=== PATIENT | female | born 1980 | race Caucasian/White ===

== ENCOUNTER 2016-12-20 20:02 | Emergency (ER) | payer OTHER ==
[~2016-12-20] VITALS: Ht 170.2 cm; Wt 80.1 kg
[2016-12-20 20:21] VITALS: TEMP 37.1; Ht 170.2 cm; Wt 80.1 kg
[2016-12-20] MEDS ORDERED: KETOROLAC TROMETHAMINE 30 MG/ML VIAL IV STA (21:04)
[2016-12-20] MEDS ORDERED: PROCHLORPERAZINE 5 MG/ML 2 ML VIAL IV STA (21:04)
[2016-12-20] MEDS ORDERED: SODIUM CHLORIDE 0.9% 1000ML 1,000 ML IV STA (21:04)
[2016-12-20] MEDS ORDERED: LEVO150T PO (21:09)
[2016-12-20] MEDS ORDERED: SUMA50TA15 PO (21:09)
[2016-12-20 21:49] LABS: BUN/CREATININE RATIO 12.9 (10-20); CREATININE 0.86 mg/dl (0.60-1.20); POTASSIUM 3.9 mmol/L (3.5-5.1)
--- NOTE | 2016-12-20 22:14 | EMERGENCY ROOM VISIT NOTE ---
ED Visit Note First contact with patient: 20:29 CHIEF COMPLAINT: Severe headache today HISTORY OF PRESENT ILLNESS: This patient had gradual onset of a severe generalized headache since 3pm yesterday. Patient states history of migraine headaches, states this feels similar, but she has never had one last this long. She denies any sudden onset or "thunderclap" type headache, denies worst headache of her life. She went to urgent care today, who gave her a new prescription for Imitrex, she has taken this twice today without relief, so she decided to come to the ED. There has been associated photophobia, phonophobia, and nausea, but no vomiting. The patient denies fever or chills today, and there is no weakness or numbness of the extremities. There is no difficulty with speech or vision. No trauma to the head and no neck pain. The pain is severe, constant, and it is slowly increasing in severity. This is not the worst headache of her life and is similar to previous migraines. She reports previous imaging studies of the brain (CT/MRI scans) have been normal. REVIEW OF SYSTEMS: Ears: No pain or change in hearing. Neck: No pain, stiffness, or swelling. Neurological: No changes in mental status, vertigo, focal weakness, numbness. Denies any slurred speech or confusion. Cardiac: No chest pain, diaphoresis, dyspnea on exertion, orthopnea, pedal edema, or palpitations. Respiratory: No cough, change in sputum, wheezes, hemoptysis, shortness of breath, or stridor. Gastrointestinal: No abdominal pain, blood in stools, diarrhea, loss of appetite, nausea, or vomiting. Skin: No rash, new lesions, or masses. General: No fever or chills, fatigue, loss of appetite , or significant recent weight gain or loss. PMH: The patient is healthy; there is no significant medical or surgical history. SOCIAL HISTORY: Patient lives at home. PHYSICAL EXAM: Vital Signs: Reviewed Nurse's notes. MENTAL STATUS: Alert, oriented, and coherent. In great distress from the headache. NECK: Supple, nontender, no lymphadenopathy. HEART: Regular rhythm and normal rate without murmurs, ectopy, gallops, or rubs. SKIN: Normal. NEUROLOGICAL: Pupils are round, equal and react to light. The optic fundi are normal and the discs are flat. EOMs are full and there is no nystagmus. The patient moves all extremities well and the gait is normal. Negative Romberg's test. Normal [id number] test. Each. EMERGENCY DEPARTMENT COURSE: I examined the patient. Her neuro exam is unremarkable and no focal deficits. Her history is consistent with a migraine headache and no red flags. Basic labs assessed, no significant electrolyte abnormalities and normal renal function. The patient was given IV fluid bolus, IV Toradol, IV Compazine cocktail for the headache with significant relief of the pain and patient sleeping on reassessment. Patient was instructed to follow closely with her PCP and to discuss possible referral to a neurologist of her migraines continue to be frequent. She verbalized understanding. Patient was discharged home in stable condition and ambulatory. Patient was discussed with Dr. Santos, who agrees with my assessment and disposition. Current/Historical Medications Scheduled Levothyroxine Sodium (Synthroid), 150 MCG PO DAILY Sumatriptan Succinate (Imitrex), 50 MG PO PRN Allergies Coded Allergies: Aspirin (Verified Allergy, Mild, Hives, 12/20/16) Codeine (Verified Allergy, Mild, Hives, 12/20/16) Vital Signs Date Time Temp Pulse Resp B/P (MAP) Pulse Ox O2 Delivery O2 Flow Rate FiO2 12/20/16 23:13 68 18 111/72 96 Room Air 12/20/16 21:46 74 20 123/79 99 Room Air 12/20/16 20:21 37.1 86 18 125/85 98 Room Air Laboratory Results 12/20/16 21:15 Test 12/20/16 21:15 Anion Gap 6.0 mmol/L (3-11) Est Creatinine Clear Calc Drug Dose 97.6 ml/min Estimated GFR () 100.0 Estimated GFR (Non- 86.3 BUN/Creatinine Ratio 12.9 (10-20) Calcium Level 9.0 mg/dl (8.5-10.1) Chemistry Specimen Hemolysis Medications Administered Medications (Trade) Dose Ordered Sig/Kenneth Route Start Time Stop Time Status Last Admin Dose Admin Prochlorperazine Edisylate (Compazine Inj) 10 mg NOW STAT IV 12/20/16 21:04 12/20/16 21:07 DC 12/20/16 21:42 10 MG Sodium Chloride 1,000 ml @ 999 mls/hr Q1H1M STAT IV 12/20/16 21:04 12/20/16 22:04 DC 12/20/16 21:04 999 MLS/HR Ketorolac Tromethamine (Toradol Inj) 15 mg NOW STAT IV 12/20/16 21:04 12/20/16 21:07 DC 12/20/16 21:41 15 MG Departure Information Impression Primary Impression: Migraine Dispostion Home / Self-Care Condition GOOD Referrals No Doctor, Assigned (PCP) Patient Instructions ED Headache Migraine, My [facility] Additional Instructions Rest today in a quiet, peaceful, dark environment and get a full 8-10 hrs of sleep tonight. Avoid loud noises, smoke/smoking, alcohol, bright lights, stress, or physical exertion today to minimize the chance the headache may return. Ibuprofen(Motrin, Advil) may be used for fever or pain. Use 600mg every 6-8 hours as needed. Take with food. Avoid using more than 2400mg in a 24 hour period. Do not use 2400mg per day for more than three consecutive days without physician direction. Prolonged inappropriate use can lead to stomach upset or ulcers. (AND/OR) Acetaminophen(Tylenol) may be used for fever or pain. Use 1000mg every 8 hours as needed. Avoid using more than 3000mg in a 24 hour period. You may try using the Imitrex at the first sign of a migraine headache to see if this will stop it from worsening. Return to the ER for passing out, worsening headache, vision problems, neck stiffness/pain, fevers, vomiting, worsening of your condition, or for any other concerns. Follow up with your primary physician in 2-3 days for a recheck of your current condition. Discuss referral to see a neurologist regarding her migraine headaches. Problem Qualifiers Primary Impression: Migraine Migraine type: with aura Status migrainosus presence: without status migrainosus Intractability: intractable Qualified Codes: G43.119 - Migraine with aura, intractable, without status migrainosus
[2016-12-20 23:13] VITALS: BP 111/72; PULSE 68; O2SAT 96
== END 2016-12-20 23:16 | disposition home or self-care (01) ==
LOC: C.EDB 20:03 → C.EDA 23:16
DX: G43.119 Migraine with aura, intractable, without status migrainosus (principal)

== ENCOUNTER → 2017-01-25 | Outpatient (CLI) | payer OTHER ==
[~2017-01-25] MED LIST: LEVO150T PO; SUMA50TA15 PO
[2017-01-25 12:48] LABS: BLOOD UREA NITROGEN 11 mg/dl (7-18); BUN/CREATININE RATIO 13.6 (10-20); CARBON DIOXIDE 26 mmol/L (21-32); CHLORIDE 106 mmol/L (98-107); CREATININE 0.81 mg/dl (0.60-1.20); GLUCOSE 89 mg/dl (70-99); POTASSIUM 3.9 mmol/L (3.5-5.1); SODIUM 140 mmol/L (136-145)
[2017-01-25 12:58] LABS: THYROID STIMULATING HORMONE 0.502 uIu/ml (0.300-4.500)
[2017-01-25 13:15] LABS: INSULIN FASTING 7.4 mU/L (3-25)
== END | disposition home or self-care (01) ==
LOC: C.LAB1850 10:39
PROVIDERS: ATTEND Internal Medicine Endocrinology, Diabetes & Metabolism
DX: O24.419 Gestational diabetes mellitus in pregnancy, unspecified control (principal); C73 Malignant neoplasm of thyroid gland; L68.0 Hirsutism; E83.51 Hypocalcemia; O99.280 Endocrine, nutritional and metabolic diseases complicating pregnancy, unspecified trimester; O99.719 Diseases of the skin and subcutaneous tissue complicating pregnancy, unspecified trimester; O9A.119 Malignant neoplasm complicating pregnancy, unspecified trimester

== ENCOUNTER → 2017-02-03 | Outpatient (CLI) | payer OTHER ==
--- NOTE | 2017-02-03 14:32 | DIAGNOSTIC IMAGING REPORT ---
NECK ULTRASOUND CLINICAL HISTORY: Thyroid cancer status post thyroidectomy 2010. COMPARISON STUDY: None at time of interpretation. TECHNIQUE: Sonography of the thyroidectomy bed and neck was performed. FINDINGS: A 6 mm x 2 mm x 2 mm hypoechoic focus within the right thyroidectomy bed is of doubtful significance. No additional abnormalities are identified within the thyroidectomy bed. Note is made of a prominent left level 2 cervical lymph node that measures 2.3 x 0.8 cm. No pathologically enlarged cervical lymph nodes are identified. IMPRESSION: 1. Prominent but nonenlarged left level 2 cervical lymph node, measuring 2.3 x 0.8 cm. This lymph node is likely benign however ultrasound-guided fine needle aspiration could be performed if clinically indicated. 2. 6 mm hypoechoic focus within the right thyroidectomy head which is of doubtful significance. Electronically signed by: Alex Méndez M.D. 02/03/2017 2:31 PM Dictated Date/Time: 02/03/2017 12:15 PM
== END | disposition home or self-care (01) ==
LOC: C.ULTR 10:16
PROVIDERS: ATTEND Internal Medicine Endocrinology, Diabetes & Metabolism
DX: C73 Malignant neoplasm of thyroid gland (principal); E89.0 Postprocedural hypothyroidism

== ENCOUNTER → 2017-02-20 | Outpatient (CLI) | payer OTHER ==
[2017-02-21 14:13] LABS: THYROGLOBULIN <0.1 NG/ML (2.8-40.9)
== END | disposition home or self-care (01) ==
LOC: C.LAB 10:00
PROVIDERS: ATTEND Internal Medicine Endocrinology, Diabetes & Metabolism
DX: C73 Malignant neoplasm of thyroid gland (principal)

== ENCOUNTER → 2017-02-24 | Outpatient (CLI) | payer OTHER ==
[2017-02-25 11:34] LABS: THYROGLOBULIN <0.1 NG/ML (2.8-40.9)
== END | disposition home or self-care (01) ==
LOC: C.LAB1850 10:14
PROVIDERS: ATTEND Internal Medicine Endocrinology, Diabetes & Metabolism
DX: C73 Malignant neoplasm of thyroid gland (principal)

== ENCOUNTER 2019-04-01 19:54 | Inpatient (IN) ==
[2019-04-01] MEDS ORDERED: ONDANSETRON INJ 2 MG/ML 2 ML VIAL IV STA (20:21)
[2019-04-01] MEDS ORDERED: fentaNYL citrate 100 MCG/2 ML VIAL IV STA (20:21)
[2019-04-01] MEDS ORDERED: KETOROLAC TROMETHAMINE 15 MG/ML VIAL IV STA (20:21)
[2019-04-01] MEDS ORDERED: SODIUM CHLORIDE 0.9% 1000ML 1,000 ML IV ONE (20:22)
[2019-04-01] MEDS ORDERED: SODIUM CHLORIDE 0.9% 1000ML 1,000 ML IV SCH (20:30)
[2019-04-01 20:42] LABS: Appearance Urine Clear (Clear); Bacteria Urine Automated Negative (Negative); Bilirubin Urine Negative (Negative); Blood Urine 1+ (Negative); Cast Urine Automated 0 /lpf (0-5); Color Urine Yellow; Glucose Urine UA Negative (Negative); Ketones Urine 1+ (Negative); Leukocyte Esterase Urine Negative (Negative); Nitrite Urine Negative (Negative); Protein Urine Negative (Negative); RBC Urine Automated 0-4 /hpf (0-4); Specific Gravity Urine 1.015 (1.000-1.030); Urobilinogen Urine Negative (Negative)
[2019-04-01 20:52] LABS: Basophils # (auto) 0.03 K/uL (0-0.2); Basophils % (auto) 0.2 %; Eosinophils # (auto) 0.11 K/uL (0-0.5); Eosinophils % (auto) 0.6 %; Hematocrit (blood only) 37.8 % (37-47); Immature Granulocytes # (auto) 0.05 K/uL (0.00-0.02); Immature Granulocytes % (auto) 0.3 %; Lymphocytes # (auto) 2.11 K/uL (1.2-3.4); Lymphocytes % (auto) 11.2 %; Mean Corpuscular Hemoglobin 30.7 pg (25-34); Mean Corpuscular Hgb Conc 34.4 g/dL (32-36); Mean Corpuscular Volume 89.2 fL (80-100); Mean Platelet Volume 10.2 fL (7.4-10.4); Monocytes # (auto) 1.23 K/uL (0.11-0.59); Monocytes % (auto) 6.5 %; Neutrophils # (auto) 15.31 K/uL (1.4-6.5); Neutrophils % (auto) 81.2 %; Platelet Count 264 K/uL (130-400); RDW Coefficient of Variation 12.8 % (11.5-14.5); RDW Standard Deviation 41.7 fL (36.4-46.3); Red Blood Count 4.24 M/uL (4.2-5.4); White Blood Count 18.84 K/uL (4.8-10.8)
[2019-04-01 21:01] LABS: iSTAT Creatinine 0.8 mg/dl (0.6-1.3); iSTAT Hemoglobin 13.3 g/dl (12.0-16.0); iSTAT Ionized Calcium 1.13 mmol/l (1.12-1.32); iSTAT Potassium 3.7 mEq/L (3.3-5.0)
[2019-04-01] MEDS ORDERED: IOVERSOL 100ml IV PRN (21:01)
[2019-04-01 21:08] LABS: Albumin Level 3.9 gm/dl (3.4-5.0); BUN Creatinine Ratio 13.1 (10-20); Calcium 9.1 mg/dl (8.5-10.1); Creatinine Clr Calc Pharmacy 91.1 ml/min; Est GFR (African American) 98.6; Est GFR (Non-African American) 85.1; Potassium 3.7 mmol/L (3.5-5.1)
[2019-04-01 21:11] LABS: Bilirubin,Total 1.1 mg/dl (0.2-1); Globulin 4.1 gm/dl (2.5-4.0)
--- NOTE | 2019-04-01 21:20 | CT Scan Report ---
CT abd pelvis IV con only CT DOSE: 362.90 mGy.cm HISTORY: Pain. Nausea. RLQ pain, nausea TECHNIQUE: Multiaxial CT images of the abdomen and pelvis were performed following the use of intrave nous contrast. A dose lowering technique was utilized adhering to the principles of ALARA. COMPARISON STUDY: None. FINDINGS: The lung bases are clear. The liver, spleen, gallbladder, pancreas, kidneys, and adrenal gl ands are within normal limits. There are findings of a diffuse inflammatory process within the right mid to lower paracolic gutter. This encompasses components of what appear to be a distended appendix at 12 mm, as well as several di verticuli adjacent to the superior aspect of the cecum and/or mid ascending colon. Diagnostic considerations primarily include cecal diverticulitis with secondary appendicitis. Overall dimensions of the inflammatory and/or developing phlegmon is process is 6 x 5 x 7 cm. A well-defined drainable component is not identified. A microabscess measuring no more than 1.5 cm potentially rela benny to at least one diverticulum of the mid ascending colon image 231. Bowel pattern is otherwise unremarkable. The bladder is midline. There is a trace amount of free flui d in the pelvic cul-de-sac. IMPRESSION::: 1. Rather significant inflammatory process involving the right mid to lower paracolic gutter 2. This encompasses a distended appendix at 12 mm, as well as contain several diverticuli. 3. No evidence for a drainable abscess or collection currently, although an early phlegmon must be co nsidered. 4. Diagnostic considerations must include cecal and/or ascending colonic diverticulitis, with seconda ry inflammatory change of the appendix. 5. An additional diagnostic considerations must include acute appendicitis with secondary ascending c olitis. 6. Overall dimension of the regional inflammatory process is 6 x 5 x 7 cm. The above report was generated using voice recognition software. It may contain grammatical, syntax or spelling errors. Electronically signed by: Grady Yanez M.D. 04/01/2019 9:18 PM
[2019-04-01] MEDS ORDERED: PIPERACILLIN/TAZOBACTAM 4.5 GM/120 ML BAG IV ONE (21:33)
[2019-04-01] MEDS ORDERED: PIPERACILL/TAZOBAC CONSULT ACTIVE PRN (21:33)
--- NOTE | 2019-04-01 22:47 | Emergency Department Note ---
Entered by Maya Murillo acting as a scribe for Rory Roldan M.D. History of Present Illness General Chief complaint: Flank Pain Stated complaint: SHARP RIGHT PAIN Time Seen by Provider: 04/01/19 20:11 Source: patient History of Present Illness Onset (ago): day(s) (yesterday) Location: right (flak) Radiation: non-radiation Maximum Pain Intensity: 6 Quality: + other (right flank pain) Exacerbated By: + other (walking) Associated symptoms: + loss of appetite and + other (Positive nausea, palpitations, family hx of gall bladder disease (her mother had a cholecystectomy), chance of . Negative upper abdominal pain, radiation of pain to her back, recent falls. ); no shortness of breath The patient is a 38 year old female who presents to the ED with complaints of right sided flank pain beginning yesterday. She describes her symptoms yesterday as a cramping and a "fullness." She notes that she did not have a specific area of tenderness yesterday, but her pain is localized to her right flank today. Her pain does not radiate to her back. She notes that walking worsens her pain. She has nausea and some palpitations earlier today. The patient denies any upper abdominal pain. She has a loss of appetite. She had a small bowel movement today but denies any diarrhea. She denies any recent falls or SOB. She denies any prior abdominal surgeries. She notes her mother has a hx of a cholecystectomy. She is unsure if she is . Home Medications Home Medications Medication Instructions Recorded Confirmed Type Synthroid 125 mcg tablet 125 mcg PO DAILY 90 Days #90 tab NS 03/22/19 04/01/19 Rx multivitamin 1 tab PO DAILY 04/01/19 04/01/19 History Allergies Allergy/AdvReac Type Severity Reaction Status Date / Time aspirin Allergy Mild Hives Verified 03/22/19 14:48 codeine Allergy Mild Hives Verified 03/22/19 14:48 Past Med/Surg History Medical History Hx of papillary thyroid carcinoma Hypothyroidism, postablative Surgical History No pertinent past surgical history Family History Mother Hx of cholecystectomy Social History Feels Safe at Home: Yes Smoking Status: Never smoker Review of Systems See HPI for pertinent positives & negatives. and A total of 10 systems reviewed and were otherwise negative Physical Exam Vital Signs Vital Signs - 24 hr 04/01/19 20:02 04/01/19 20:55 04/01/19 22:02 Temperature 38.3 C H 37.4 C Temperature Source Oral Oral Pulse Rate 112 H Pulse Rate [Apical] 85 Respiratory Rate 20 18 Blood Pressure 132/84 Blood Pressure [Left Arm] 116/73 Blood Pressure Mean 100 Blood Pressure Mean [Left Arm] 87 Pulse Oximetry 99 96 97 Oxygen Delivery Method Room Air Room Air Sepsis Recent Fever Within 48 Hours No Sepsis Action Taken by Nursing No Action Required GENERAL: Awake, alert, uncomfortable-appearing, in no distress HENT: Normocephalic, atraumatic. EYES: Normal conjunctiva. Sclera non-icteric. RESPIRATORY: Clear to auscultation. No wheezes. Normal respiratory effort. CARDIAC: Tachycardic rate. Normal rhythm. Extremities warm and well perfused. GI: Soft, non-distended. RLQ tenderness. Positive Rovsings sign. Positive Psoas sign. Guarding. MUSCULOSKELETAL: Atraumatic. Chest examination reveals no tenderness. There is no CVA tenderness to palpation. LOWER EXTREMITIES: Calves are equal size bilaterally and non-tender. No edema NEURO: Normal sensorium. No sensory or motor deficits noted. No facial droop. SKIN: Warm and dry. No rash or jaundice noted. Course Course 2013: Past medical records reviewed. The patient was evaluated in room C10. A complete history and physical exam was performed. 2128: I updated the patient on her results at this time. 2130: Discussed the patient's case with Dr. Arredondo, General Surgery. He will come evaluate the patient. 2206: Dr. Arredondo, General Surgery is evaluating the patient at this time. 2231: Discussed the patient's case with Dr. Arredondo, General Surgery. The patient will be evaluated for further management. Administered Medications Ioversol (Optiray 320 100ml) 90 ml IV ONCE PRN PRN Reason: Interaction Checking Stop: 04/05/19 21:00 Last Admin: 04/01/19 21:01 Dose: 90 ml Documented by: [id number] Discontinued Medications Fentanyl Citrate (Fentanyl Citrate) 50 mcg IV NOW STA Stop: 04/01/19 20:22 Last Admin: 04/01/19 20:46 Dose: 50 mcg Documented by: [id number] Sodium Chloride (Nss 1000ml) 1,000 mls @ 999 mls/hr IV .Q1H1M SKYLER Stop: 04/01/19 21:30 Last Admin: 04/01/19 20:46 Dose: 999 mls/hr Documented by: [id number] Sodium Chloride (Nss 1000ml) 1,000 mls @ 999 mls/hr IV .Q1H1M ONE Stop: 04/01/19 21:22 Last Admin: 04/01/19 20:45 Dose: 999 mls/hr Documented by: [id number] Piperacillin Sod/Tazobactam Sod (Zosyn) 4.5 gm in 120 mls @ 240 mls/hr IV NOW ONE Stop: 04/01/19 22:02 Last Admin: 04/01/19 22:03 Dose: 240 mls/hr Documented by: [id number] Ketorolac Tromethamine (Toradol) 15 mg IV NOW STA Stop: 04/01/19 20:22 Last Admin: 04/01/19 20:46 Dose: 15 mg Documented by: [id number] Ondansetron HCl (Zofran) 4 mg IV NOW STA Stop: 04/01/19 20:22 Last Admin: 04/01/19 20:46 Dose: 4 mg Documented by: [id number] Medical Decision Making Differential Diagnosis Differential diagnosis: Etiologies such as appendicitis, diverticulitis, PUD, biliary pathology, UTI, pancreatitis, obstruction, mesenteric ischemia, aortic pathology, infections, inflammatory bowel disease, renal colic, as well as others were entertained. Medical Records Attestation: I reviewed the patient's medical records. Home Medications Current Medication List: was personally reviewed by me Laboratory Data Attestation: I reviewed the patient's lab results. Result diagrams: 04/01/19 20:40 04/01/19 20:40 Lab Results 04/01/19 04/01/19 04/01/19 Range/Units 20:28 20:40 20:40 WBC 18.84 H (4.8-10.8) K/uL RBC 4.24 (4.2-5.4) M/uL Hgb 13.0 (12.0-16.0) g/dL POC Hgb (12.0-16.0) g/dl Hct 37.8 (37-47) % POC Hct (37-47) % MCV 89.2 (80-100) fL MCH 30.7 (25-34) pg MCHC 34.4 (32-36) g/dL RDW Std Deviation 41.7 (36.4-46.3) fL RDW Coeff of Shannon 12.8 (11.5-14.5) % Plt Count 264 (130-400) K/uL MPV 10.2 (7.4-10.4) fL Immature Gran % (Auto) 0.3 % Neut % (Auto) 81.2 % Lymph % (Auto) 11.2 % [place] % (Auto) 6.5 % Eos % (Auto) 0.6 % Baso % (Auto) 0.2 % Immature Gran # (Auto) 0.05 H (0.00-0.02) K/uL Neut # (Auto) 15.31 H (1.4-6.5) K/uL Lymph # (Auto) 2.11 (1.2-3.4) K/uL [place] # (Auto) 1.23 H (0.11-0.59) K/uL Eos # (Auto) 0.11 (0-0.5) K/uL Baso # (Auto) 0.03 (0-0.2) K/uL POC Sodium (135-144) mEq/L Sodium 137 (136-145) mmol/L POC Potassium (3.3-5.0) mEq/L Potassium 3.7 (3.5-5.1) mmol/L POC Chloride (101-112) mEq/L Chloride 105 (98-107) mmol/L Carbon Dioxide 26 (21-32) mmol/L POC Total CO2 (24-31) mEq/l Anion Gap 7.0 (3-11) POC Anion Gap (16-25) mmol/L POC BUN (7-18) mg/dl BUN 11 (7-18) mg/dl Creatinine 0.86 (0.6-1.2) mg/dl POC Creatinine (0.6-1.3) mg/dl Est Cr Clr Drug Dosing 91.1 ml/min Est GFR ( Amer) 98.6 Est GFR (Non-Af Amer) 85.1 BUN/Creatinine Ratio 13.1 (10-20) Glucose 93 (70-99) mg/dl POC Glucose (other) (70-99) mg/dl Lactate (0.4-2.0) mmol/L Calcium 9.1 (8.5-10.1) mg/dl POC Ioniz Calcium Malika (1.12-1.32) mmol/l Total Bilirubin 1.1 H (0.2-1) mg/dl AST 12 L (15-37) U/L ALT 24 (12-78) U/L Alkaline Phosphatase 68 (45-117) U/L Total Protein 8.0 (6.4-8.2) gm/dl Albumin 3.9 (3.4-5.0) gm/dl Globulin 4.1 H (2.5-4.0) gm/dl Albumin/Globulin Ratio 1.0 (0.9-2) Lipase 79 (73-393) U/L Urine Color Yellow Urine Appearance Clear (Clear) Urine pH 5.0 (4.5-7.5) Ur Specific [place] 1.015 (1.000-1.030) Urine Protein Negative (Negative) Urine Glucose (UA) Negative (Negative) Urine Ketones 1+ H (Negative) Urine Blood 1+ H (Negative) Urine Nitrite Negative (Negative) Urine Bilirubin Negative (Negative) Urine Urobilinogen Negative (Negative) Ur Leukocyte Esterase Negative (Negative) Urine WBC (Auto) 1-5 (0-5) /hpf Urine RBC (Auto) 0-4 (0-4) /hpf U Hyaline Cast (Auto) 0 (0-5) /lpf U Epithel Cells (Auto) 10-20 H (0-5) /lpf Urine Bacteria (Auto) Negative (Negative) POC Ur Test (NEG) 04/01/19 04/01/19 04/01/19 Range/Units 20:50 20:55 21:49 WBC (4.8-10.8) K/uL RBC (4.2-5.4) M/uL Hgb (12.0-16.0) g/dL POC Hgb 13.3 (12.0-16.0) g/dl Hct (37-47) % POC Hct 39 (37-47) % MCV (80-100) fL MCH (25-34) pg MCHC (32-36) g/dL RDW Std Deviation (36.4-46.3) fL RDW Coeff of Shannon (11.5-14.5) % Plt Count (130-400) K/uL MPV (7.4-10.4) fL Immature Gran % (Auto) % Neut % (Auto) % Lymph % (Auto) % [place] % (Auto) % Eos % (Auto) % Baso % (Auto) % Immature Gran # (Auto) (0.00-0.02) K/uL Neut # (Auto) (1.4-6.5) K/uL Lymph # (Auto) (1.2-3.4) K/uL [place] # (Auto) (0.11-0.59) K/uL Eos # (Auto) (0-0.5) K/uL Baso # (Auto) (0-0.2) K/uL POC Sodium 138 (135-144) mEq/L Sodium (136-145) mmol/L POC Potassium 3.7 (3.3-5.0) mEq/L Potassium (3.5-5.1) mmol/L POC Chloride 101 (101-112) mEq/L Chloride (98-107) mmol/L Carbon Dioxide (21-32) mmol/L POC Total CO2 26 (24-31) mEq/l Anion Gap (3-11) POC Anion Gap 16.0 (16-25) mmol/L POC BUN 10 (7-18) mg/dl BUN (7-18) mg/dl Creatinine (0.6-1.2) mg/dl POC Creatinine 0.8 (0.6-1.3) mg/dl Est Cr Clr Drug Dosing ml/min Est GFR ( Amer) Est GFR (Non-Af Amer) BUN/Creatinine Ratio (10-20) Glucose (70-99) mg/dl POC Glucose (other) 97 (70-99) mg/dl Lactate 0.8 (0.4-2.0) mmol/L Calcium (8.5-10.1) mg/dl POC Ioniz Calcium [place] 1.13 (1.12-1.32) mmol/l Total Bilirubin (0.2-1) mg/dl AST (15-37) U/L ALT (12-78) U/L Alkaline Phosphatase (45-117) U/L Total Protein (6.4-8.2) gm/dl Albumin (3.4-5.0) gm/dl Globulin (2.5-4.0) gm/dl Albumin/Globulin Ratio (0.9-2) Lipase (73-393) U/L Urine Color Urine Appearance (Clear) Urine pH (4.5-7.5) Ur Specific [place] (1.000-1.030) Urine Protein (Negative) Urine Glucose (UA) (Negative) Urine Ketones (Negative) Urine Blood (Negative) Urine Nitrite (Negative) Urine Bilirubin (Negative) Urine Urobilinogen (Negative) Ur Leukocyte Esterase (Negative) Urine WBC (Auto) (0-5) /hpf Urine RBC (Auto) (0-4) /hpf U Hyaline Cast (Auto) (0-5) /lpf U Epithel Cells (Auto) (0-5) /lpf Urine Bacteria (Auto) (Negative) POC Ur Test NEG (NEG) Imaging Data Radiologist's Impression: Radiology results as stated below per my review and the radiologist's interpretation: CT abd pelvis IV con only CT DOSE: 362.90 mGy.cm HISTORY: Pain. Nausea. RLQ pain, nausea TECHNIQUE: Multiaxial CT images of the abdomen and pelvis were performed following the use of intravenous contrast. A dose lowering technique was utilized adhering to the principles of ALARA. COMPARISON STUDY: None. FINDINGS: The lung bases are clear. The liver, spleen, gallbladder, pancreas, kidneys, and adrenal glands are within normal limits. There are findings of a diffuse inflammatory process within the right mid to lower paracolic gutter. This encompasses components of what appear to be a distended appendix at 12 mm, as well as several diverticuli adjacent to the superior aspect of the cecum and/or mid ascending colon. Diagnostic considerations primarily include cecal diverticulitis with secondary appendicitis. Overall dimensions of the inflammatory and/or developing phlegmon is process is 6 x 5 x 7 cm. A well-defined drainable component is not identified. A microabscess measuring no more than 1.5 cm potentially relates to at least one diverticulum of the mid ascending colon image 231. Bowel pattern is otherwise unremarkable. The bladder is midline. There is a trace amount of free fluid in the pelvic cul-de-sac. IMPRESSION::: 1. Rather significant inflammatory process involving the right mid to lower paracolic gutter 2. This encompasses a distended appendix at 12 mm, as well as contain several diverticuli. 3. No evidence for a drainable abscess or collection currently, although an early phlegmon must be considered. 4. Diagnostic considerations must include cecal and/or ascending colonic diverti culitis, with secondary inflammatory change of the appendix. 5. An additional diagnostic considerations must include acute appendicitis with secondary ascending colitis. 6. Overall dimension of the regional inflammatory process is 6 x 5 x 7 cm. The above report was generated using voice recognition software. It may contain grammatical, syntax or spelling errors. Electronically signed by: Grady Yanez M.D. 04/01/2019 9:18 PM Blood Pressure Blood Pressure Findings: Elevated blood pressure Blood Pressure Disposition: further management by hospitalist (surgeon, improving here) MDM Narrative Patient is a 38-year-old female with a past medical history of hypothyroidism and papillary thyroid carcinoma presenting today complaining of onset of sharp right sided abdominal pain. Febrile upon arrival and tachycardic. States she started to experience right-sided abdominal pain yesterday. Somewhat tender in the left causing pain on the right, positive Rovsing's. Positive psoas sign. Right lower quadrant tenderness. Denies significant shortness of breath. Denies trauma. Denies history. Denies urinary symptoms. Denies diarrhea. No prior history of abdominal surgeries. Decreased appetite today with some nausea. Given symptomatic treatment with fluids, antiemetic, and pain medicine. Concern for possible appendicitis versus other intra-abdominal pathology. Urinalysis and urine was checked. Basic labs were obtained exclude hepatitis and pancreatitis. CBC and basic labs were also obtained. Given some Toradol as well doubt with pain and fever control. These improved. Leukocytosis 18 is noted. No evidence of hepatitis or pancreatitis. Lactate not elevated. Blood cultures ordered. CT scan shows evidence of significant plantar process in the right lower quadrant. Question of colitis versus appendicitis. Inflammation and some dilation of both. Discussed with general surgery who evaluated in the emergency department. Given Zosyn for broad-spectrum antibiotic coverage. Surgery evaluated and wished to admit for further care and management. Trial of supportive care and antibiotics rather than OR tonight. Impression & Plan Colitis, Diverticulitis, Appendicitis with nonoperative management Discharge Plan Visit Data Chief Complaint: Flank Pain Stated Complaint: SHARP RIGHT PAIN ED Provider: Rory Roldan Discharge Problem: Colitis, Diverticulitis, Appendicitis with nonoperative management Patient Disposition: Being Evaluated by Surgeon Forms Stand Alone Forms: My [facility] Prescriptions Prescriptions: No Action levothyroxine [Synthroid] 125 mcg tablet 125 mcg PO DAILY 90 Days Qty: 90 RF: 2 multivitamin Tablet 1 tab PO DAILY RF: 0 Referrals Referrals: Mary Nicholas DO [Primary Care Provider] - The scribe's documentation has been prepared under my direction and personally reviewed by me in its entirety. I confirm that the note above accurately refle cts all work, treatment, procedures, and medical decision making performed by me.
--- NOTE | 2019-04-01 22:57 | History & Physical Report ---
Date of Service April 01, 2019 Assessment & Plan (1) Diverticulitis: After reviewing the CT scan there is a rather large area of inflammation encompassing the cecum and portion of the right colon. This would be a far larger surgery than a simple appendectomy and this would be in the face of unprepped bowel. I suspect an operation would likely require an ileocecectomy. It is unclear whether she has right-sided diverticulitis versus colitis versus appendicitis. We discussed the options and pros and cons of immediate surgical intervention versus antibiotics/symptom control. We have decided to treat this conservatively with antibiotics. Hopefully she will improve and in 2 to 3 mon ths could have a colonoscopy performed. At that time we could discuss elective appendectomy if her colonoscopy is negative. We also discussed the possibility that she might not improve and may worsen over the next 24 to 48 hours. If that were the case then we would have to perform a surgical intervention with a likely ileocecectomy. I answered all of her questions she is agrees with the plan. We will admit her for supportive care and antibiotics with serial evaluations. History of Present Illness Primary Care Provider: DO Vanessa Hull presents with a 1-1/2 to 2 day history of abdominal discomfort with some progression to the right lower quadrant. She also has some mild anorexia. She does have a history of some similar discomfort in the past primarily during her pregnancies. She denies any nausea or vomiting. CT scan reveals an inflamed cecum portion of her right colon encompassing the area of the appendix. Differential diagnosis includes colitis/diverticulitis/appendicitis Allergies Allergy/AdvReac Type Severity Reaction Status Date / Time aspirin Allergy Mild Hives Verified 03/22/19 14:48 codeine Allergy Mild Hives Verified 03/22/19 14:48 Home Medications Home Medications Medication Instructions Recorded Confirmed Type Synthroid 125 mcg tablet 125 mcg PO DAILY 90 Days #90 tab NS 03/22/19 04/01/19 Rx multivitamin 1 tab PO DAILY 04/01/19 04/01/19 History Past Med/Surg History Medical History Hx of papillary thyroid carcinoma Hypothyroidism, postablative Surgical History No pertinent past surgical history Family History Mother Hx of cholecystectomy Social History Feels Safe at Home: Yes Smoking Status: Never smoker Review of Systems All systems reviewed & are unremarkable except as noted in HPI & below Physical Exam Constitutional: WD/WN, vitals as above no acute distress and not ill appearing Eyes: PERRL, conjunctivae normal, anicteric sclerae EOM intact bilaterally ENMT: external ear and nose normal, oropharynx normal Ears: no hearing impairment Neck: trachea midline, no thyromegaly Respiratory: normal respiratory effort; no respiratory distress and does not use accessory muscles Cardiovascular: Rate/Rhythm: regular rate and regular rhythm Gastrointestinal (Abdomen): Positive right lower quadrant and right mid abdominal tenderness to palpation. Positive guarding. Positive heel strike. No evidence of diffuse peritonitis. Skin: no rashes, warm and dry Psychiatric: Orientation: alert, oriented x 3 and cooperative Results & Data Vital Signs (Past 12 Hours) Vital Signs Temp Pulse Pulse Resp BP BP Pulse Ox 04/01/19 22:02 37.4 C 85 18 116/73 97 04/01/19 20:55 96 04/01/19 20:02 38.3 C H 112 H 20 132/84 99
[2019-04-02] MEDS ORDERED: HYDROmorphone INJ 2 MG/ML SYR/VIAL IV PRN (00:08)
[2019-04-02] MEDS ORDERED: ONDANSETRON INJ 2 MG/ML 2 ML VIAL IV PRN (00:08)
[2019-04-02] MEDS ORDERED: LACTATED RINGER'S 1,000 ML IV SCH (00:08)
[2019-04-02] MEDS ORDERED: HYDROmorphone INJ 1 MG/ML SYRINGE IV PRN (00:08)
[2019-04-02] MEDS ORDERED: PIPERACILL/TAZOBAC CONSULT ACTIVE PRN (00:08)
[2019-04-02 00:35] LABS: Basophils # (auto) 0.03 K/uL (0-0.2); Basophils % (auto) 0.2 %; Eosinophils # (auto) 0.12 K/uL (0-0.5); Eosinophils % (auto) 0.7 %; Hemoglobin 11.8 g/dL (12.0-16.0); Immature Granulocytes # (auto) 0.05 K/uL (0.00-0.02); Immature Granulocytes % (auto) 0.3 %; Lymphocytes # (auto) 2.53 K/uL (1.2-3.4); Lymphocytes % (auto) 15.7 %; Mean Corpuscular Hemoglobin 30.3 pg (25-34); Mean Corpuscular Hgb Conc 33.7 g/dL (32-36); Mean Platelet Volume 10.1 fL (7.4-10.4); Monocytes # (auto) 1.36 K/uL (0.11-0.59); Monocytes % (auto) 8.4 %; Neutrophils # (auto) 12.01 K/uL (1.4-6.5); Neutrophils % (auto) 74.7 %; Platelet Count 233 K/uL (130-400); RDW Standard Deviation 42.3 fL (36.4-46.3); Red Blood Count 3.89 M/uL (4.2-5.4)
[2019-04-02] MEDS: PIPERACILLIN/TAZOBACTAM 3.375 GM in DEXTROSE 5% 100 ML IV SCH ×3 (02:29→17:10)
[2019-04-02 06:40] LABS: Basophils # (auto) 0.03 K/uL (0-0.2); Basophils % (auto) 0.2 %; Eosinophils # (auto) 0.18 K/uL (0-0.5); Eosinophils % (auto) 1.2 %; Hematocrit (blood only) 33.7 % (37-47); Hemoglobin 11.5 g/dL (12.0-16.0); Immature Granulocytes # (auto) 0.06 K/uL (0.00-0.02); Immature Granulocytes % (auto) 0.4 %; Lymphocytes # (auto) 1.98 K/uL (1.2-3.4); Mean Corpuscular Hemoglobin 30.5 pg (25-34); Mean Corpuscular Hgb Conc 34.1 g/dL (32-36); Mean Corpuscular Volume 89.4 fL (80-100); Mean Platelet Volume 10.2 fL (7.4-10.4); Monocytes # (auto) 1.43 K/uL (0.11-0.59); Monocytes % (auto) 9.4 %; Neutrophils % (auto) 75.8 %; Platelet Count 220 K/uL (130-400); RDW Standard Deviation 42.5 fL (36.4-46.3); Red Blood Count 3.77 M/uL (4.2-5.4); White Blood Count 15.18 K/uL (4.8-10.8)
--- NOTE | 2019-04-02 08:57 | Surgery Progress Note ---
Date of Service April 02, 2019 Assessment & Plan (1) Diverticulitis: Patient here with concern for right sided diverticulitis vs acute appendicitis Having less pain today, but is still present on the right side WBC downtrending to 15 from 18 yesterday and she remains afebrile Plan to keep NPO with IVF and continue IV zosyn for another 24-48 hours Potentially re-scan abdomen this upcoming Patient seen and examined with Dr. Arredondo as above. slightly improved clinically. afebrile. WBC slightly down. continue current care. recheck wbc tomorrow. continue NPO/antibiotics. Subjective Patient states she feels a little better today than yesterday, but still has right sided abdominal pain. Physical Exam Physical Exam: awake/alert Results & Data Vital Signs (Past 12 Hours) Vital Signs Temp Pulse Resp BP Pulse Ox 04/02/19 07:28 36.5 C 70 16 94/59 L 97 04/02/19 00:02 37 C 75 16 106/71 100 04/01/19 22:02 37.4 C 85 18 116/73 97 PG Care Time/CCT Total # of Minutes Spent Total Time Spent with Patient: Total time spent is greater than 50% in coordination of care (as documented) at patient's floor/unit and/or counseling patient:
[2019-04-02] MEDS: SODIUM CHLORIDE 0.9% 1000ML 1,000 ML IV SCH ×2 (09:27→17:09)
[2019-04-02] MEDS: ACETAMINOPHEN 1,000 MG/100 ML VIAL IV PRN ×2 (09:31→18:47)
[2019-04-03] MEDS: PIPERACILLIN/TAZOBACTAM 3.375 GM in DEXTROSE 5% 100 ML IV SCH ×3 (01:44→18:41)
[2019-04-03] MEDS: SODIUM CHLORIDE 0.9% 1000ML 1,000 ML IV SCH ×3 (01:45→17:41)
[2019-04-03 08:04] LABS: Hematocrit (blood only) 32.4 % (37-47); Hemoglobin 10.9 g/dL (12.0-16.0); Mean Corpuscular Hemoglobin 30.4 pg (25-34); Mean Corpuscular Hgb Conc 33.6 g/dL (32-36); Mean Corpuscular Volume 90.5 fL (80-100); Mean Platelet Volume 10.1 fL (7.4-10.4); Platelet Count 228 K/uL (130-400); RDW Coefficient of Variation 12.8 % (11.5-14.5); RDW Standard Deviation 42.1 fL (36.4-46.3); Red Blood Count 3.58 M/uL (4.2-5.4); White Blood Count 15.89 K/uL (4.8-10.8)
[2019-04-03 08:05] LABS: Basophils # (auto) 0.02 K/uL (0-0.2); Basophils % (auto) 0.1 %; Eosinophils # (auto) 0.07 K/uL (0-0.5); Eosinophils % (auto) 0.4 %; Immature Granulocytes # (auto) 0.07 K/uL (0.00-0.02); Immature Granulocytes % (auto) 0.4 %; Lymphocytes # (auto) 1.76 K/uL (1.2-3.4); Lymphocytes % (auto) 11.1 %; Monocytes % (auto) 7.6 %; Neutrophils # (auto) 12.77 K/uL (1.4-6.5); Neutrophils % (auto) 80.4 %
--- NOTE | 2019-04-03 09:35 | Surgery Progress Note ---
Date of Service April 03, 2019 Assessment & Plan (1) Diverticulitis: Hospital day 2 with right sided diverticulitis +/- appendicitis Abdominal pain better than yesterday WBC remained elevated at 15 today Tmax of 38.3 around 8pm yesterday, afebrile since but she is taking Tylenol for pain Continue on IV Zosyn Repeat labs trevor and will plan for repeat CT scan in near future as above. clinically somewhat improved. will recheck CT scan tomorrow. continue IV antibiotics. if ct worse will likely proceed to OR. Subjective Patient states after we saw her yesterday she had worsening abdominal pain. Since this morning however it is much improved and more manageable. She is taking in small sips and ice chips without issue. Passing gas but no BM. Physical Exam Physical Exam: awake/alert Respiratory: normal respiratory effort Gastrointestinal (Abdomen): Inspection/Auscultation: abdomen not distended Percussion/Palpation: + abdomen tender (ttp in RLQ), + guarding (RLQ) and abdomen soft Results & Data Vital Signs (Past 12 Hours) Vital Signs Temp Pulse Resp BP Pulse Ox 04/03/19 07:31 37.0 C 82 16 97/62 L 96 04/02/19 23:05 37.4 C 76 18 98/61 L 95 PG Care Time/CCT Total # of Minutes Spent Total Time Spent with Patient: Total time spent is greater than 50% in coordination of care (as documented) at patient's floor/unit and/or counseling patient:
[2019-04-03] MEDS: LEVOTHYROXINE SODIUM 125 MCG TABLET PO SCH (13:59)
[2019-04-04] MEDS: ACETAMINOPHEN 1,000 MG/100 ML VIAL IV PRN ×2 (00:40→12:09)
[2019-04-04] MEDS: PIPERACILLIN/TAZOBACTAM 3.375 GM in DEXTROSE 5% 100 ML IV SCH ×3 (01:57→17:28)
[2019-04-04] MEDS: SODIUM CHLORIDE 0.9% 1000ML 1,000 ML IV SCH ×3 (01:57→16:50)
[2019-04-04 08:08] LABS: Basophils # (auto) 0.02 K/uL (0-0.2); Basophils % (auto) 0.2 %; Eosinophils # (auto) 0.15 K/uL (0-0.5); Eosinophils % (auto) 1.6 %; Hematocrit (blood only) 29.3 % (37-47); Immature Granulocytes # (auto) 0.02 K/uL (0.00-0.02); Immature Granulocytes % (auto) 0.2 %; Lymphocytes # (auto) 1.22 K/uL (1.2-3.4); Lymphocytes % (auto) 13.3 %; Mean Corpuscular Hemoglobin 30.6 pg (25-34); Mean Corpuscular Hgb Conc 34.1 g/dL (32-36); Mean Corpuscular Volume 89.6 fL (80-100); Mean Platelet Volume 9.9 fL (7.4-10.4); Monocytes % (auto) 7.6 %; Neutrophils # (auto) 7.09 K/uL (1.4-6.5); Neutrophils % (auto) 77.1 %; Platelet Count 212 K/uL (130-400); RDW Coefficient of Variation 12.9 % (11.5-14.5); RDW Standard Deviation 42.2 fL (36.4-46.3); Red Blood Count 3.27 M/uL (4.2-5.4)
[2019-04-04] MEDS ORDERED: IOVERSOL 100ml IV PRN (08:14)
--- NOTE | 2019-04-04 08:34 | CT Scan Report ---
ABDOMEN AND PELVIS CT WITH IV AND ORAL CONTRAST CT DOSE: 499.03 mGy.cm HISTORY: Right-sided abdominal pain. evaluate appendicitis/diverticulitis TECHNIQUE: Multiaxial CT images of the abdomen and pelvis were performed following the use of intrave nous and oral contrast. A dose lowering technique was utilized adhering to the principles of ALARA. COMPARISON STUDY: Abdomen and pelvis CT 03/2019. FINDINGS: Bibasilar linear densities likely represent subsegmental atelectasis. Interval development of small bilateral pleural effusions. No pneumoperitoneum. No pneumatosis. No fractures within the vi sualized osseous structures. No hepatic or splenic masses. The adrenal glands, pancreas, and kidneys enhance normally. No hydronephrosis. The gallbladder is within normal limits. Mild periportal edema. No retroperitoneal lymphadenopathy. The bladder, uterus, and bilateral ovaries are unremarkable. Smal l amount of pelvic fluid. Multiple diverticula within the ascending colon. There is moderate bowel wa ll thickening involving the ascending colon with significant surrounding inflammatory change/phlegmon . No drainable fluid collections identified at this time to suggest an abscess. No perforation. This is similar to the prior study and favors an acute diverticulitis. The appendix is normal in caliber a nd almost completely fills with contrast. Therefore, no evidence for acute appendicitis. IMPRESSION: 1. Moderate bowel wall thickening with extensive surrounding inflammatory change/phlegmon at the asce nding colon which favors an acute diverticulitis. No abscess or perforation identified at this time. This is overall similar to the prior study. Follow-up colonoscopy should be performed once the divert iculitis has resolved to exclude the less likely possibility of an underlying colonic lesion. 2. Normal appendix. 3. Interval development of small bilateral pleural effusions, a small amount of pelvic fluid, and mil d periportal edema. Electronically signed by: Jeremi Durbin M.D. 04/04/2019 8:33 AM
[2019-04-04] MEDS: LEVOTHYROXINE SODIUM 125 MCG TABLET PO SCH (08:49)
--- NOTE | 2019-04-04 10:42 | Surgery Progress Note ---
Date of Service April 04, 2019 Assessment & Plan (1) Diverticulitis: Doing better clinically. White blood cell count now down to 9000 and she is afebrile. CT scan not much change however now favors diverticulitis. We will start some clear liquids and continue the IV antibiotics. Possible discharge in the next 24 to 48 hours if she continues to improve. Subjective Patient feeling somewhat better today. Still some right sided tenderness but much improved overall. Physical Exam Physical Exam: Alert and oriented no acute distress. No respiratory distress. Abdomen is soft. Positive right sided tenderness. No peritoneal signs. Results & Data Vital Signs (Past 12 Hours) Vital Signs Temp Pulse Resp BP Pulse Ox 04/04/19 07:57 36.8 C 67 19 112/75 96 04/03/19 23:40 37.2 C 81 16 105/67 95 PG Care Time/CCT Total # of Minutes Spent Total Time Spent with Patient: Total time spent is greater than 50% in coordination of care (as documented) at patient's floor/unit and/or counseling patient:
[2019-04-05] MEDS: SODIUM CHLORIDE 0.9% 1000ML 1,000 ML IV SCH ×2 (00:37→08:16)
[2019-04-05] MEDS: PIPERACILLIN/TAZOBACTAM 3.375 GM in DEXTROSE 5% 100 ML IV SCH ×2 (02:30→09:39)
[2019-04-05] MEDS: LEVOTHYROXINE SODIUM 125 MCG TABLET PO SCH (06:23)
--- NOTE | 2019-04-05 07:35 | Surgery Progress Note ---
Date of Service April 05, 2019 Assessment & Plan (1) Diverticulitis: slowly improving. will try low residue diet to see if this helps her mild "acid stomach" wbc pending will re-eval later today for possible d/c on oral antibiotics [facility] covering weekend. Subjective doing ok pain cunningham...having some nausea and bloating... not much appetite. +loose bm's since ingesting oral contrast Physical Exam Physical Exam: mm's moist. no leukoplakia abd: soft. minimal tenderness. no peritoneal signs Results & Data Vital Signs (Past 12 Hours) Vital Signs Temp Pulse Resp BP Pulse Ox 04/04/19 23:20 36.7 C 65 18 124/86 100 PG Care Time/CCT Total # of Minutes Spent Total Time Spent with Patient: Total time spent is greater than 50% in c oordination of care (as documented) at patient's floor/unit and/or counseling patient:
[2019-04-05 08:18] LABS: Basophils # (auto) 0.03 K/uL (0-0.2); Basophils % (auto) 0.4 %; Eosinophils # (auto) 0.23 K/uL (0-0.5); Eosinophils % (auto) 2.9 %; Hematocrit (blood only) 30.9 % (37-47); Hemoglobin 10.1 g/dL (12.0-16.0); Immature Granulocytes # (auto) 0.01 K/uL (0.00-0.02); Immature Granulocytes % (auto) 0.1 %; Lymphocytes # (auto) 1.35 K/uL (1.2-3.4); Lymphocytes % (auto) 17.2 %; Mean Corpuscular Hgb Conc 32.7 g/dL (32-36); Mean Corpuscular Volume 91.7 fL (80-100); Monocytes # (auto) 0.48 K/uL (0.11-0.59); Monocytes % (auto) 6.1 %; Neutrophils # (auto) 5.75 K/uL (1.4-6.5); Neutrophils % (auto) 73.3 %; Platelet Count 238 K/uL (130-400); RDW Standard Deviation 43.5 fL (36.4-46.3); Red Blood Count 3.37 M/uL (4.2-5.4); White Blood Count 7.85 K/uL (4.8-10.8)
--- NOTE | 2019-04-08 09:21 | Discharge Summary ---
DATE OF ADMISSION: 04/01/2019 DATE OF DISCHARGE: 04/05/2019 PRIMARY DISCHARGE DIAGNOSIS: Diverticulitis of ascending colon. PROCEDURE PERFORMED: None. HOSPITAL COURSE: The patient is a 38-year-old female who presented to the Emergency Department with a 2-day history of right flank pain and nausea. Her white count was 15,000. CT showed inflammatory process in the right lower quadrant with dilated appendix as well as several diverticuli and early phlegmon, but no drainable abscesses. She was admitted to surgery service for IV antibiotics and further observation. Her symptoms improved with IV antibiotics. Her white count normalized by the third day and she was afebrile. A repeat CT showed similar inflammatory changes in the right lower quadrant, but no significant progression or drainable collections. She was able to tolerate an advancing diet. Her white count remained normal. After 4 days of IV antibiotics, she was stable for discharge on oral antibiotics. DISCHARGE EXAM: She has remained afebrile. She has minimal right lower quadrant tenderness. White cell count is 7800. DISCHARGE MEDICATIONS: Augmentin 875 mg p.o. b.i.d. x2 weeks. Continue her home Synthroid 125 mcg daily, daily multivitamin and ibuprofen 200- 400 mg as needed for pain. DISCHARGE INSTRUCTIONS: Discharge home. Follow up with Dr. Arredondo in 10-14 days. Plan for eventual colonoscopy. ARTURO
== END 2019-04-05 14:46 | disposition home or self-care (01) | DRG 392 ==
LOC: ED 19:54 → 3W 23:05

== ENCOUNTER 2019-04-07 16:02 | Inpatient (IN) ==
--- NOTE | 2019-04-07 16:46 | XRay Report ---
XR chest 1V portable HISTORY: Atypical Chest Pain COMPARISON: Abdomen and pelvis CT 04/04/2019. FINDINGS: No pneumothorax. Small bilateral pleural effusions are again noted. Bibasilar linear densit ies consistent with subsegmental atelectasis. The upper lung zones remain clear. The heart is normal in size. IMPRESSION: No change in the small bilateral pleural effusions and bibasilar subsegmental atelectasis. Electronically signed by: Jeremi Durbin M.D. 04/07/2019 4:45 PM
[2019-04-07 16:52] LABS: Basophils # (auto) 0.03 K/uL (0-0.2); Basophils % (auto) 0.4 %; Eosinophils % (auto) 3.9 %; Hematocrit (blood only) 33.8 % (37-47); Hemoglobin 11.4 g/dL (12.0-16.0); Immature Granulocytes # (auto) 0.01 K/uL (0.00-0.02); Immature Granulocytes % (auto) 0.1 %; Lymphocytes # (auto) 2.22 K/uL (1.2-3.4); Mean Corpuscular Hemoglobin 30.2 pg (25-34); Mean Corpuscular Hgb Conc 33.7 g/dL (32-36); Mean Corpuscular Volume 89.7 fL (80-100); Mean Platelet Volume 10.4 fL (7.4-10.4); Monocytes # (auto) 0.62 K/uL (0.11-0.59); Monocytes % (auto) 8.1 %; Neutrophils # (auto) 4.47 K/uL (1.4-6.5); Neutrophils % (auto) 58.5 %; Platelet Count 299 K/uL (130-400); RDW Standard Deviation 42.4 fL (36.4-46.3); Red Blood Count 3.77 M/uL (4.2-5.4); White Blood Count 7.65 K/uL (4.8-10.8)
[2019-04-07 17:09] LABS: Alanine Aminotransferase 32 U/L (12-78); Albumin Level 3.4 gm/dl (3.4-5.0); Aspartate Aminotransferase 26 U/L (15-37); BUN Creatinine Ratio 8.4 (10-20); Blood Urea Nitrogen 6 mg/dl (7-18); Calcium 8.9 mg/dl (8.5-10.1); Carbon Dioxide 27 mmol/L (21-32); Chloride 104 mmol/L (98-107); Creatinine Clr Calc Pharmacy 106.5 ml/min; Est GFR (African American) 116.4; Est GFR (Non-African American) 100.4; Glucose 84 mg/dl (70-99); Lipase 68 U/L (73-393); Magnesium 1.8 mg/dl (1.8-2.4); Potassium 3.3 mmol/L (3.5-5.1); Sodium 141 mmol/L (136-145)
[2019-04-07 17:11] LABS: Pregnancy Test, Serum Negative (Negative)
[2019-04-07 17:15] LABS: INR 1.1 (0.9-1.1); Partial Thromboplastin Ratio 0.9; Partial Thromboplastin Time 25.7 Seconds (21.0-31.0); Prothrombin Time 11.4 Seconds (9.0-12.0)
--- NOTE | 2019-04-07 17:19 | CT Scan Report ---
HEAD CT NONCONTRAST CT DOSE: 537.48 mGy.cm HISTORY: Headache. TECHNIQUE: Multiaxial CT images of the head were performed without the use of intravenous contrast. A utomated exposure control was utilized for this study. A dose lowering technique was utilized adheri ng to the principles of ALARA. Comparison: None. Findings: The paranasal sinuses and mastoid air cells are clear. The calvarium and skull base are int act. The ventricles and sulci are within normal limits. There is no mass, hematoma, midline shift, or acute infarct. Impression: No acute intracranial abnormality. Electronically signed by: Jeremi Durbin M.D. 04/07/2019 5:18 PM
[2019-04-07 17:20] LABS: Albumin Globulin Ratio 0.9 (0.9-2); Alkaline Phosphatase 70 U/L (45-117); Bilirubin,Total 0.3 mg/dl (0.2-1); Total Protein 7.4 gm/dl (6.4-8.2); Troponin I < 0.015 ng/ml (0-0.045)
[2019-04-07 17:27] LABS: D Dimer 8950 ug/L FEU (0-500)
[2019-04-07] MEDS ORDERED: OPTIRAY 320 125ml IV PRN (17:44)
--- NOTE | 2019-04-07 17:57 | CT Scan Report ---
CHEST CTA for PULMONARY ARTERIES CT DOSE: 264.51 mGy.cm HISTORY: Atypical chest pain. TECHNIQUE: Multiaxial CT images of the chest were performed following the intravenous administration of contrast to evaluate the pulmonary arteries. Maximal intensity projection images were also obtaine d. A dose lowering technique was utilized adhering to the principles of ALARA. COMPARISON STUDY: None. FINDINGS: No mediastinal or hilar lymphadenopathy. The heart is normal in size. No pericardial effusi on. Small bilateral pleural effusions, right greater than left. Normal caliber thoracic aorta. No brianna dence for an aortic dissection. Limited views of the upper abdomen demonstrate a normal liver and spl een. Normal esophagus. No filling defects within the pulmonary arteries to suggest pulmonary embolus. No fractures within the visualized osseous structures. No pneumothorax. Bilateral lower lobe basilar consolidation favors atelectasis from the pleural effusions. The central airways are patent. IMPRESSION: 1. No evidence for pulmonary embolus. 2. Small bilateral pleural effusions. 3. Bibasilar densities favor atelectasis. Electronically signed by: Jeremi Durbin M.D. 04/07/2019 5:56 PM
--- NOTE | 2019-04-07 18:18 | Emergency Department Note ---
Entered by Nadia Arzate acting as a scribe for Arnol Correa DO History of Present Illness General Chief complaint: Bradycardia Stated complaint: BRADYCARDIA, PALPITATIONS, CHEST PRESSURE Time Seen by Provider: 04/07/19 16:14 Source: patient History of Present Illness Onset (ago): day(s) 2 Location: chest (bradycardia) Pain Consistency: + intermittent Associated symptoms: + denies other symptoms (diarrhea, rectal bleeding), + cough, + headaches (daily), + shortness of breath and + other (generalized body swelling, 10lb weight gain in 6 days, abdominal distension, neck stiffness); no chest pain (none currently, had chest and sternal pressure 3 days ago ) The patient is a 38 year old female with a history of hypothyroidism, papillary thyroid carcinoma, colitis, appendicitis, and recent hospital discharge 2 days ago for right sided diverticulitis who presents to the Emergency Room with c omplaints of bradycardia. The patient explains that she began to experience chest pressure near her sternum 3 days ago when she was laying down to go to sleep. While still in the hospital 2 days ago she began to experience intermittent bradycardia. After she was released this past weekend, her chest pressure persisted more frequently and was now associated with shortness of breath and cough. The patient states that these respiratory symptoms are unusual for her because she never had respiratory issues in the past. She called her PCP and they recommended that she go to Urgent Care. She received an EKG at Urgent Care today and she reports that her heart rate was in the 30s and thus she was sent to the ED for further evaluation. Additionally, the patient reports generalized body swelling and a 10lb weight gain since her arrival in the hospital 6 days ago. She also states that her abdomen has been feeling distended, however her last BM was this morning. The patient also complains of daily headaches and neck stiffness (both new sx from baseline). Of note, the patient is currently on Amoxicillin and does not complain of any abdominal pain. She also states that she does not currently have any chest pain, just anxiety. She has no history of blood clots in her legs or lungs and her previous thyroid cancer never metastasized. She denies diarrhea and rectal bleeding. The patient offers no additional concerns at this time. Home Medications Home Medications Medication Instructions Recorded Confirmed Type multivitamin 1 tab PO HS 12/02/19 12/08/19 History amoxicillin-pot clavulanate 1 tab PO BID 14 Days #28 tab 04/04/19 04/07/19 Rx [Augmentin] ibuprofen 200 mg PO QID PRN 04/07/19 04/07/19 History levothyroxine [Synthroid] 125 mcg PO QAM 04/07/19 04/07/19 History Allergies Allergy/AdvReac Type Severity Reaction Status Date / Time aspirin Allergy Mild Hives Verified 04/07/19 16:40 codeine Allergy Mild Hives Verified 04/07/19 16:40 Past Med/Surg History Medical History Diverticulitis (Acute) Hx of papillary thyroid carcinoma Hypothyroidism, postablative Surgical History No pertinent past surgical history Family History Mother Hx of cholecystectomy Social History Preferred Language: [place] Communication Ability: Effective [employer] Central Office Required: No Beliefs That Will Affect Care: None Current Living Situation: Spouse and Family Feels Safe at Home: Yes Smoking Status: Never smoker Hx Alcohol Use: No Hx Substance Use: No Review of Systems See HPI for pertinent positives & negatives. and A total of 10 systems reviewed and were otherwise negative Physical Exam Vital Signs Vital Signs - 24 hr 04/07/19 16:08 04/07/19 16:33 04/07/19 16:40 Temperature 36.6 C Temperature Source Oral Pulse Rate 45 L 45 L 44 L Pulse Rate from SpO2 Sensor Pulse Rhythm Regular Pulse Strength Normal Respiratory Rate 20 17 16 Respiratory Effort / Characteristics Non-Labored Spontaneous Respiratory Depth Normal Respiratory Pattern Regular Blood Pressure 171/100 H 150/91 H Blood Pressure Mean 123 124 Blood Pressure Position Sitting Pulse Oximetry 99 Oxygen Delivery Method Room Air Sepsis Recent Fever Within 48 Hours No Sepsis New/Unexplained Change in Mental Status No Sepsis Action Taken by Nursing No Action Required 04/07/19 16:43 04/07/19 17:01 04/07/19 17:02 Temperature Temperature Source Pulse Rate 63 39 L Pulse Rate from SpO2 Sensor 39 L Pulse Rhythm Pulse Strength Respiratory Rate 19 15 Respiratory Effort / Characteristics Respiratory Depth Respiratory Pattern Blood Pressure 145/78 H Blood Pressure Mean 96 Blood Pressure Position Pulse Oximetry 97 100 Oxygen Delivery Method Room Air Sepsis Recent Fever Within 48 Hours Sepsis New/Unexplained Change in Mental Status Sepsis Action Taken by Nursing 04/07/19 17:03 04/07/19 17:30 04/07/19 17:31 Temperature Temperature Source Pulse Rate 42 L 35 L 37 L Pulse Rate from SpO2 Sensor 41 L Pulse Rhythm Pulse Strength Respiratory Rate 17 14 16 Respiratory Effort / Characteristics Respiratory Depth Respiratory Pattern Blood Pressure 143/83 H Blood Pressure Mean 94 Blood Pressure Position Pulse Oximetry 98 Oxygen Delivery Method Sepsis Recent Fever Within 48 Hours Sepsis New/Unexplained Change in Mental Status Sepsis Action Taken by Nursing 04/07/19 18:00 04/07/19 18:01 Temperature Temperature Source Pulse Rate 41 L 38 L Pulse Rate from SpO2 Sensor 42 L 39 L Pulse Rhythm Pulse Strength Respiratory Rate 15 15 Respiratory Effort / Characteristics Respiratory Depth Respiratory Pattern Blood Pressure 171/95 H Blood Pressure Mean 151 Blood Pressure Position Pulse Oximetry 98 97 Oxygen Delivery Method Sepsis Recent Fever Within 48 Hours Sepsis New/Unexplained Change in Mental Status Sepsis Action Taken by Nursing GENERAL: Patient is awake, alert, and in no acute distress.Patient is resting comfortably and showing no signs of anxiety EYES: The conjunctivae are clear. The pupils are round and reactive. EARS, NOSE, MOUTH AND THROAT: The nose is without any evidence of any deformity. Mucous membranes are moist.Tongue is midline NECK: The neck is nontender and supple. RESPIRATORY: Normal respiratory effort is noted. There is no evidence of wheezing rhonchi or rales to auscultation. CARDIOVASCULAR: Regular rate and rhythm noted. There no murmurs rubs or gallops normal S1 normal S2 GASTROINTESTINAL: The abdomen is soft. Bowel sounds are present in all quadrants. Abdomen is nontender. MUSCULOSKELETAL/EXTREMITIES: There is no evidence of gross deformity. Full range of motion is noted in the hips and shoulders. SKIN: There is no obvious evidence of any rash. There are no petechiae, pallor or cyanosis noted. NEUROLOGIC: Patient is awake alert and oriented x3. Strength is symmetric. Patellar reflexes are 2+ bilaterally. Course Course 161: Past medical records reviewed. The patient was evaluated in room C07. A complete history and physical exam was performed. 1814: Spoke to LES Guzman who agrees to see the patient. 1820: The patient will be admitted to [facility]. The patient verbally expressed understanding and agreement of the treatment plan. She will be evaluated for further treatment. Administered Medications Ioversol (Optiray 320 125ml) 119 ml IV ONCE PRN PRN Reason: Interaction Checking Stop: 04/11/19 17:43 Last Admin: 04/07/19 17:44 Dose: 119 ml Documented by: [id number] Medical Decision Making Differential Diagnosis Differential diagnosis includes but is not limited to etiologies such as cardiac ischemia, aortic dissection, pulmonary embolism, pneumonia, pneumothorax, musculoskeletal, infections, pericarditis, myocarditis, esophageal rupture, gastrointestinal, as well as others were entertained. Medical Records Attestation: I reviewed the patient's medical records. Home Medications Current Medication List: was personally reviewed by me Laboratory Data Attestation: I reviewed the patient's lab results. Result diagrams: 04/07/19 16:37 04/07/19 16:37 Lab Results 04/07/19 04/07/19 04/07/19 Range/Units 16:37 16:37 16:37 WBC 7.65 (4.8-10.8) K/uL RBC 3.77 L (4.2-5.4) M/uL Hgb 11.4 L (12.0-16.0) g/dL Hct 33.8 L (37-47) % MCV 89.7 (80-100) fL MCH 30.2 (25-34) pg MCHC 33.7 (32-36) g/dL RDW Std Deviation 42.4 (36.4-46.3) fL RDW Coeff of Shannon 13.0 (11.5-14.5) % Plt Count 299 (130-400) K/uL MPV 10.4 (7.4-10.4) fL Immature Gran % (Auto) 0.1 % Neut % (Auto) 58.5 % Lymph % (Auto) 29.0 % Grundy % (Auto) 8.1 % Eos % (Auto) 3.9 % Baso % (Auto) 0.4 % Immature Gran # (Auto) 0.01 (0.00-0.02) K/uL Neut # (Auto) 4.47 (1.4-6.5) K/uL Lymph # (Auto) 2.22 (1.2-3.4) K/uL Grundy # (Auto) 0.62 H (0.11-0.59) K/uL Eos # (Auto) 0.30 (0-0.5) K/uL Baso # (Auto) 0.03 (0-0.2) K/uL PT 11.4 (9.0-12.0) Seconds INR 1.1 (0.9-1.1) APTT 25.7 (21.0-31.0) Seconds PTT Ratio 0.9 D-Dimer 8950 H* (0-500) ug/L FEU Sodium 141 (136-145) mmol/L Potassium 3.3 L (3.5-5.1) mmol/L Chloride 104 (98-107) mmol/L Carbon Dioxide 27 (21-32) mmol/L Anion Gap 9.0 (3-11) BUN 6 L (7-18) mg/dl Creatinine 0.75 (0.6-1.2) mg/dl Est Cr Clr Drug Dosing 106.5 ml/min Est GFR ( Amer) 116.4 Est GFR (Non-Af Amer) 100.4 BUN/Creatinine Ratio 8.4 L (10-20) Glucose 84 (70-99) mg/dl Calcium 8.9 (8.5-10.1) mg/dl Magnesium 1.8 (1.8-2.4) mg/dl Total Bilirubin 0.3 (0.2-1) mg/dl AST 26 (15-37) U/L ALT 32 (12-78) U/L Alkaline Phosphatase 70 (45-117) U/L Troponin I < 0.015 (0-0.045) ng/ml Total Protein 7.4 (6.4-8.2) gm/dl Albumin 3.4 (3.4-5.0) gm/dl Globulin 4.0 (2.5-4.0) gm/dl Albumin/Globulin Ratio 0.9 (0.9-2) Lipase 68 L (73-393) U/L TSH 3.650 (0.300-4.500) uIu/ml HCG, Qual (Negative) 04/07/19 Range/Units 16:37 WBC (4.8-10.8) K/uL RBC (4.2-5.4) M/uL Hgb (12.0-16.0) g/dL Hct (37-47) % MCV (80-100) fL MCH (25-34) pg MCHC (32-36) g/dL RDW Std Deviation (36.4-46.3) fL RDW Coeff of Shannon (11.5-14.5) % Plt Count (130-400) K/uL MPV (7.4-10.4) fL Immature Gran % (Auto) % Neut % (Auto) % Lymph % (Auto) % Grundy % (Auto) % Eos % (Auto) % Baso % (Auto) % Immature Gran # (Auto) (0.00-0.02) K/uL Neut # (Auto) (1.4-6.5) K/uL Lymph # (Auto) (1.2-3.4) K/uL Grundy # (Auto) (0.11-0.59) K/uL Eos # (Auto) (0-0.5) K/uL Baso # (Auto) (0-0.2) K/uL PT (9.0-12.0) Seconds INR (0.9-1.1) APTT (21.0-31.0) Seconds PTT Ratio D-Dimer (0-500) ug/L FEU Sodium (136-145) mmol/L Potassium (3.5-5.1) mmol/L Chloride (98-107) mmol/L Carbon Dioxide (21-32) mmol/L Anion Gap (3-11) BUN (7-18) mg/dl Creatinine (0.6-1.2) mg/dl Est Cr Clr Drug Dosing ml/min Est GFR ( Amer) Est GFR (Non-Af Amer) BUN/Creatinine Ratio (10-20) Glucose (70-99) mg/dl Calcium (8.5-10.1) mg/dl Magnesium (1.8-2.4) mg/dl Total Bilirubin (0.2-1) mg/dl AST (15-37) U/L ALT (12-78) U/L Alkaline Phosphatase (45-117) U/L Troponin I (0-0.045) ng/ml Total Protein (6.4-8.2) gm/dl Albumin (3.4-5.0) gm/dl Globulin (2.5-4.0) gm/dl Albumin/Globulin Ratio (0.9-2) Lipase (73-393) U/L TSH (0.300-4.500) uIu/ml HCG, Qual Negative (Negative) Imaging Data Radiologist's Impression: Radiology results as stated below per my review and the radiologist's interpretation: XR chest 1V portable HISTORY: Atypical Chest Pain COMPARISON: Abdomen and pelvis CT 04/04/2019. FINDINGS: No pneumothorax. Small bilateral pleural effusions are again noted. Bibasilar linear densities consistent with subsegmental atelectasis. The upper lung zones remain clear. The heart is normal in size. IMPRESSION: No change in the small bilateral pleural effusions and bibasilar subsegmental atelectasis. Electronically signed by: Jeremi Durbin M.D. 04/07/2019 4:[address] CT DOSE: 537.48 mGy.cm HISTORY: Headache. TECHNIQUE: Multiaxial CT images of the head were performed without the use of intravenous contrast. Automated exposure control was utilized for this study. A dose lowering technique was utilized adhering to the principles of ALARA. Comparison: None. Findings: The paranasal sinuses and mastoid air cells are clear. The calvarium and skull base are intact. The ventricles and sulci are within normal limits. There is no mass, hematoma, midline shift, or acute infarct. Impression: No acute intracranial abnormality. Electronically signed by: Jeremi Durbin M.D. 04/07/2019 5:18 PM CHEST CTA for PULMONARY ARTERIES CT DOSE: 264.51 mGy.cm HISTORY: Atypical chest pain. TECHNIQUE: Multiaxial CT images of the chest were performed following the intravenous administration of contrast to evaluate the pulmonary arteries. Maximal intensity projection images were also obtained. A dose lowering technique was utilized adhering to the principles of ALARA. COMPARISON STUDY: None. FINDINGS: No mediastinal or hilar lymphadenopathy. The heart is normal in size. No pericardial effusion. Small bilateral pleural effusions, right greater than left. Normal caliber thoracic aorta. No evidence for an aortic dissection. Limited views of the upper abdomen demonstrate a normal liver and spleen. Normal esophagus. No filling defects within the pulmonary arteries to suggest pulmonary embolus. No fractures within the visualized osseous structures. No pneumothorax. Bilateral lower lobe basilar consolidation favors atelectasis from the pleural effusions. The central airways are patent. IMPRESSION: 1. No evidence for pulmonary embolus. 2. Small bilateral pleural effusions. 3. Bibasilar densities favor atelectasis. Electronically signed by: Jeremi Durbin M.D. 04/07/2019 5:56 PM ECG Data Attestation: I personally reviewed and interpreted this ECG as follows: Indication: + bradycardia Rate (beats per minute): 47 Rhythm: + sinus bradycardia ECG Findings: + Other (no acute ST segments ); no PACs and no PVCs Comparison ECG Date: no prior available Blood Pressure Blood Pressure Findings: Elevated blood pressure Blood Pressure Disposition: further management by hospitalist MDM Narrative The patient is a 38-year-old female who presented to the emergency department for an evaluation of low heart rate. The patient states that she was recently admitted to our facility and treated for right-sided diverticulitis. She is currently taking an antibiotic. She noticed a few times while she was in the hospital that her pulse rate was low. She states she also has a very significant headache that she is been complaining of since she was admitted to the facility. The patient did not have any focal neurologic deficit or meningismus. She does have a history of thyroid cancer and there was concern by myself that this could represent a bradycardia from a [employer] lesion. CT the head revealed no acute disease. She was also complaining of chest pain which was somewhat positional. Given her recent hospitalization CT the chest was obtained to ensure this does not represent venous thrombi embolic disease. I discussed the patient's laboratory and radiographic studies with her. She continues to have significant bradycardia. She was also found to have bilateral pleural effusions on CT the chest. For this reason I discussed her case with the on- call [facility] hospitalist group. They have agreed to evaluate the patient in the emergency department for further management and disposition. Impression & Plan Bradycardia, Pleural effusion, Chest pain Discharge Plan Visit Data Chief Complaint: Bradycardia Stated Complaint: BRADYCARDIA, PALPITATIONS, CHEST PRESSURE ED Provider: Arnol Correa Discharge Problem: Bradycardia, Pleural effusion, Chest pain Patient Disposition: Being Evaluated by Hospitalist Forms Stand Alone Forms: My [facility] [employer] Prescriptions Prescriptions: No Action ibuprofen 200 mg Tablet 200 mg PO QID PRN (Reason: Pain) RF: 0 levothyroxine [Synthroid] 125 mcg tablet 125 mcg PO QAM RF: 0 multivitamin Tablet 1 tab PO HS RF: 0 amoxicillin-pot clavulanate [Augmentin] 875-125 mg tablet 1 tab PO BID 14 Days Qty: 28 RF: 0 Referrals Referrals: Mary Nicholas DO [Primary Care Provider] - Discharge Problem: Chest pain Qualifiers: Chest pain type: unspecified Qualified Code(s): R07.9 - Chest pain, unspecified The scribe's documentation has been prepared under my direction and personally reviewed by me in its entirety. I confirm that the note above accurately reflects all work, treatment, procedures, and medical decision making performed by me.
--- NOTE | 2019-04-07 18:45 | History & Physical Report ---
Date of Service April 07, 2019 Assessment & Plan (1) Bradycardia: No evidence of block on EKG and she is not on AV audrey blockers. Thought to be secondary response to recent infection with over resuscitation. Will give Lasix for pleural effusions and weight gain and monitor bradycardic response. She is able to augment her heart rate with a lively conversation. Cardiology consultation in a.m. to ensure things are improved, and no other etiologies are likely. (2) Pleural effusion: Secondary to recent infection with over resuscitation during recent hospitalization. Lasix 10 IV ordered. Strict I's and O's. Daily weights. Monitor for response. (3) Chest pain: Suspect this is related to volume overloaded state. Monitor for improvement with Lasix. We will also ensure there is no evolution of troponin elevation with a serial trend overnight. Troponin currently negative no evidence of ischemia present on EKG. Notably she had a positive d-dimer with a negative CTA of the chest for PE. She is currently comfortable so long as she is not lying flat. I suspect the Lasix will help her symptoms, however, she reports high sensitivity to pain medication and has a type I allergy to codeine so we will plan to treat pain that is severe as it arises. (4) Diverticulitis: Improved on Augmentin. She does not have evidence of peritonitis on exam and is clinically doing well overall. Continue low fiber diet, Augmentin. Do not see the need to involve surgery at this point. (5) Hypothyroidism, postablative: Continue Synthroid per home regimen. (6) DVT prophylaxis: Lovenox Full code Disposition-plan for home in a.m. pending improvement of heart rate and good r esponse to Lasix. Also pending cardiology clearance for discharge. Altagracia Stafford DO [facility] Hospitalist History of Present Illness Chief Complaint: Bradycardia and chest pressure Primary Care Provider: Mary Nicholas DO 38-year-old female presented with acute abdominal pain and was recently admitted to the hospital. She was ultimately found to have acute diverticulitis and has done well on the Augmentin she was sent home on. However, during the hospitalization she was kept n.p.o. for several days with several days of IV fluids and gained reportedly 10 pounds during this time. Just prior to discharge she reported having some chest pressure especially worse with lying down and feeling like something was sitting on her chest. She was discharged and continued to feel this way subsequently becoming bradycardic. She felt as if she had too much fluid on her. She continued to worsen today and went to urgent care to be seen and subsequently came to the ER. EKG coming in reveals no evidence of block and she is in sinus bradycardia that is rate responsive. Heart rate will go up into the high 60s when she is active and conversing with me. She still feels like something is sitting on her chest and feels as if she cannot get a very deep breath. Lying flat causes the pain and pressure to be worse and sitting in a tripod position can help the pressure somewhat. CT of her chest this evening reveals persistent bilateral pleural effusions. Troponin is negative and there is no evidence of ischemia present on EKG. Her abdomen has been improving on the Augmentin and her pain is still present in the right upper quadrant and epigastric area now but is improved overall. She is starting to have normalized bowel movements and is doing well on her low fiber diet. She denies any other issues with fevers or chills. She does report a dry cough the last couple of days. Review of systems otherwise reveals mild headache for which she is taken Tylenol. She does report some intermittent palpitations also. Allergies Allergy/AdvReac Type Severity Reaction Status Date / Time aspirin Allergy Mild Hives Verified 04/07/19 16:40 codeine Allergy Mild Hives Verified 04/07/19 16:40 Home Medications Home Medications Medication Instructions Recorded Confirmed Type multivitamin 1 tab PO HS 04/01/19 04/07/19 History amoxicillin-pot clavulanate 1 tab PO BID 14 Days #28 tab 04/04/19 04/07/19 Rx [Augmentin] ibuprofen 200 mg PO QID PRN 04/07/19 04/07/19 History levothyroxine [Synthroid] 125 mcg PO QAM 04/07/19 04/07/19 History Past Med/Surg History Medical History Diverticulitis (Acute) Hx of papillary thyroid carcinoma Hypothyroidism, postablative Surgical History H/O elbow surgery H/O wisdom tooth extraction S/P thyroidectomy 2010 Family History Mother Hx of cholecystectomy Diverticulitis Rheumatoid arthritis Social History Preferred Language: Syriac Communication Ability: Effective Senior Net Programmer Required: No Beliefs That Will Affect Care: None Current Living Situation: Spouse and Family Feels Safe at Home: Yes Smoking Status: Never smoker Hx Alcohol Use: No Hx Substance Use: No Review of Systems Review of Systems: All systems reviewed & are unremarkable except as noted in HPI & below Physical Exam Physical Exam: CONSTITUTIONAL: WNWD, vitals as above, generally well- appearing EYES: PERRL, normal conjunctivae, no scleral icterus ENT: external ear and nose normal, oropharynx clear NECK: trachea midline, no LAD RESPIRATORY: clear to auscultation bilaterally, no crackles, rales or wheezes, normal respiratory effort CARDIOVASCULAR: regular rate and rhythm, S1 and 2 heard without murmurs, gallops or rubs, no JVD, no peripheral edema GASTROINTESTINAL: normal bowel sounds, soft, RUQ and epigastric TTP MUSCULOSKELETAL: strength 5/5 throughout, head is normocephalic and atraumatic SKIN: warm and dry NEUROLOGIC: CN 2-12 grossly intact, no sensory deficit, normal cognition, normal speech, no gross focal deficits. PSYCHIATRIC: alert cooperative and oriented to person, place and time. Results & Data Vital Signs (Past 12 Hours) Vital Signs Temp Pulse Resp BP Pulse Ox 04/07/19 18:01 38 L 15 97 04/07/19 18:00 41 L 15 171/95 H 98 04/07/19 17:31 37 L 16 04/07/19 17:30 35 L 14 143/83 H 04/07/19 17:03 42 L 17 98 04/07/19 17:02 39 L 15 145/78 H 100 04/07/19 17:01 63 19 04/07/19 16:43 97 04/07/19 16:40 44 L 16 150/91 H 04/07/19 16:33 45 L 17 04/07/19 16:08 36.6 C 45 L 20 171/100 H 99 Laboratory Results Short CBC 04/07/19 04/07/19 04/07/19 Range/Units 16:37 16:37 16:37 WBC 7.65 (4.8-10.8) K/uL RBC 3.77 L (4.2-5.4) M/uL Hgb 11.4 L (12.0-16.0) g/dL Hct 33.8 L (37-47) % MCV 89.7 (80-100) fL MCH 30.2 (25-34) pg MCHC 33.7 (32-36) g/dL RDW Std Deviation 42.4 (36.4-46.3) fL RDW Coeff of Shannon 13.0 (11.5-14.5) % Plt Count 299 (130-400) K/uL MPV 10.4 (7.4-10.4) fL Immature Gran % (Auto) 0.1 % Neut % (Auto) 58.5 % Lymph % (Auto) 29.0 % Hernando % (Auto) 8.1 % Eos % (Auto) 3.9 % Baso % (Auto) 0.4 % Immature Gran # (Auto) 0.01 (0.00-0.02) K/uL Neut # (Auto) 4.47 (1.4-6.5) K/uL Lymph # (Auto) 2.22 (1.2-3.4) K/uL Hernando # (Auto) 0.62 H (0.11-0.59) K/uL Eos # (Auto) 0.30 (0-0.5) K/uL Baso # (Auto) 0.03 (0-0.2) K/uL PT 11.4 (9.0-12.0) Seconds INR 1.1 (0.9-1.1) APTT 25.7 (21.0-31.0) Seconds PTT Ratio 0.9 D-Dimer 8950 H* (0-500) ug/L FEU Sodium 141 (136-145) mmol/L Potassium 3.3 L (3.5-5.1) mmol/L Chloride 104 (98-107) mmol/L Carbon Dioxide 27 (21-32) mmol/L Anion Gap 9.0 (3-11) BUN 6 L (7-18) mg/dl Creatinine 0.75 (0.6-1.2) mg/dl Est Cr Clr Drug Dosing 106.5 ml/min Est GFR ( Amer) 116.4 Est GFR (Non-Af Amer) 100.4 BUN/Creatinine Ratio 8.4 L (10-20) Glucose 84 (70-99) mg/dl Calcium 8.9 (8.5-10.1) mg/dl Magnesium 1.8 (1.8-2.4) mg/dl Total Bilirubin 0.3 (0.2-1) mg/dl AST 26 (15-37) U/L ALT 32 (12-78) U/L Alkaline Phosphatase 70 (45-117) U/L Troponin I < 0.015 (0-0.045) ng/ml Total Protein 7.4 (6.4-8.2) gm/dl Albumin 3.4 (3.4-5.0) gm/dl Globulin 4.0 (2.5-4.0) gm/dl Albumin/Globulin Ratio 0.9 (0.9-2) Lipase 68 L (73-393) U/L TSH 3.650 (0.300-4.500) uIu/ml HCG, Qual (Negative) 04/07/19 Range/Units 16:37 WBC (4.8-10.8) K/uL RBC (4.2-5.4) M/uL Hgb (12.0-16.0) g/dL Hct (37-47) % MCV (80-100) fL MCH (25-34) pg MCHC (32-36) g/dL RDW Std Deviation (36.4-46.3) fL RDW Coeff of Shannon (11.5-14.5) % Plt Count (130-400) K/uL MPV (7.4-10.4) fL Immature Gran % (Auto) % Neut % (Auto) % Lymph % (Auto) % Hernando % (Auto) % Eos % (Auto) % Baso % (Auto) % Immature Gran # (Auto) (0.00-0.02) K/uL Neut # (Auto) (1.4-6.5) K/uL Lymph # (Auto) (1.2-3.4) K/uL Hernando # (Auto) (0.11-0.59) K/uL Eos # (Auto) (0-0.5) K/uL Baso # (Auto) (0-0.2) K/uL PT (9.0-12.0) Seconds INR (0.9-1.1) APTT (21.0-31.0) Seconds PTT Ratio D-Dimer (0-500) ug/L FEU Sodium (136-145) mmol/L Potassium (3.5-5.1) mmol/L Chloride (98-107) mmol/L Carbon Dioxide (21-32) mmol/L Anion Gap (3-11) BUN (7-18) mg/dl Creatinine (0.6-1.2) mg/dl Est Cr Clr Drug Dosing ml/min Est GFR ( Amer) Est GFR (Non-Af Amer) BUN/Creatinine Ratio (10-20) Glucose (70-99) mg/dl Calcium (8.5-10.1) mg/dl Magnesium (1.8-2.4) mg/dl Total Bilirubin (0.2-1) mg/dl AST (15-37) U/L ALT (12-78) U/L Alkaline Phosphatase (45-117) U/L Troponin I (0-0.045) ng/ml Total Protein (6.4-8.2) gm/dl Albumin (3.4-5.0) gm/dl Globulin (2.5-4.0) gm/dl Albumin/Globulin Ratio (0.9-2) Lipase (73-393) U/L TSH (0.300-4.500) uIu/ml HCG, Qual Negative (Negative) BMP 04/07/19 16:37 Sodium 141 Potassium 3.3 L Chloride 104 Carbon Dioxide 27 BUN 6 L Creatinine 0.75 Glucose 84 Calcium 8.9 Cardiac Enzymes 04/07/19 Range/Units 16:37 Troponin I < 0.015 (0-0.045) ng/ml Liver Function 04/07/19 Range/Units 16:37 Total Bilirubin 0.3 (0.2-1) mg/dl AST 26 (15-37) U/L ALT 32 (12-78) U/L Alkaline Phosphatase 70 (45-117) U/L Albumin 3.4 (3.4-5.0) gm/dl Diagnostic Findings CHEST CTA for PULMONARY ARTERIES (04/08/2019) FINDINGS: No mediastinal or hilar lymphadenopathy. The heart is normal in size. No pericardial effusion. Small bilateral pleural effusions, right greater than left. Normal caliber thoracic aorta. No evidence for an aortic dissection. Limited views of the upper abdomen demonstrate a normal liver and spleen. Normal esophagus. No filling defects within the pulmonary arteries to suggest pulmonary embolus. No fractures within the visualized osseous structures. No pneumothorax. Bilateral lower lobe basilar consolidation favors atelectasis from the pleural effusions. The central airways are patent. IMPRESSION: 1. No evidence for pulmonary embolus. 2. Small bilateral pleural effusions. 3. Bibasilar densities favor atelectasis. HEAD CT NONCONTRAST (04/08/2019) Findings: The paranasal sinuses and mastoid air cells are clear. The calvarium and skull base are intact. The ventricles and sulci are within normal limits. There is no mass, hematoma, midline shift, or acute infarct. Impression: No acute intracranial abnormality. XR chest 1V portable (04/08/2019) IMPRESSION: No change in the small bilateral pleural effusions and bibasilar subsegmental atelectasis. ABDOMEN AND PELVIS CT WITH IV AND ORAL CONTRAST (04/04/2019) FINDINGS: Bibasilar linear densities likely represent subsegmental atelectasis. Interval development of small bilateral pleural effusions. No pneumoperitoneum. No pneumatosis. No fractures within the visualized osseous structures. No hepatic or splenic masses. The adrenal glands, pancreas, and kidneys enhance normally. No hydronephrosis. The gallbladder is within normal limits. Mild periportal edema. No retroperitoneal lymphadenopathy. The bladder, uterus, and bilateral ovaries are unremarkable. Small amount of pelvic fluid. Multiple diverticula within the ascending colon. There is moderate bowel wall thickening involving the ascending colon with significant surrounding inflammatory change/phlegmon. No drainable fluid collections identified at this time to suggest an abscess. No perforation. This is similar to the prior study and favors an acute diverticulitis. The appendix is normal in caliber and almost completely fills with contrast. Therefore, no evidence for acute appendicitis. IMPRESSION: 1. Moderate bowel wall thickening with extensive surrounding inflammatory change/phlegmon at the ascending colon which favors an acute diverticulitis. No abscess or perforation identified at this time. This is overall similar to the prior study. Follow-up colonoscopy should be performed once the diverticulitis has resolved to exclude the less likely possibility of an underlying colonic lesion. 2. Normal appendix. 3. Interval development of small bilateral pleural effusions, a small amount of pelvic fluid, and mild periportal edema. (1) Chest pain Chest pain type: unspecified Qualified Code(s): R07.9 - Chest pain, unspecified
[2019-04-07] MEDS ORDERED: POLYETHYLENE (MIRALAX) 17 GM PACK PO PRN (19:58)
[2019-04-07] MEDS ORDERED: POTASSIUM CHLORIDE 20 MEQ TABCR PO STA (19:58)
[2019-04-07] MEDS ORDERED: ACETAMINOPHEN 325 MG TAB PO PRN (19:58)
[2019-04-07] MEDS ORDERED: FUROSEMIDE 40 MG/4 ML VIAL IV STA (19:58)
[2019-04-07] MEDS ORDERED: ONDANSETRON INJ 2 MG/ML 2 ML VIAL IV PRN (19:58)
[2019-04-07] MEDS ORDERED: FUROSEMIDE 10 MG in SYRINGE 0 ML IV STA (20:22)
[2019-04-07] MEDS ORDERED: MULTIVITAMIN TAB PO SCH (21:00)
[2019-04-07] MEDS: AMOXICILLIN/CLAVULANATE 875 MG TAB PO SCH (21:22)
[2019-04-08] MEDS ORDERED: LEVOTHYROXINE SODIUM 125 MCG TABLET PO SCH (06:30)
[2019-04-08 06:41] LABS: Basophils # (auto) 0.04 K/uL (0-0.2); Basophils % (auto) 0.5 %; Eosinophils # (auto) 0.39 K/uL (0-0.5); Hematocrit (blood only) 34.2 % (37-47); Hemoglobin 11.3 g/dL (12.0-16.0); Immature Granulocytes # (auto) 0.01 K/uL (0.00-0.02); Immature Granulocytes % (auto) 0.1 %; Lymphocytes # (auto) 2.54 K/uL (1.2-3.4); Lymphocytes % (auto) 32.3 %; Mean Corpuscular Hemoglobin 30.1 pg (25-34); Mean Corpuscular Volume 91.2 fL (80-100); Mean Platelet Volume 9.9 fL (7.4-10.4); Monocytes # (auto) 0.64 K/uL (0.11-0.59); Monocytes % (auto) 8.1 %; Neutrophils # (auto) 4.24 K/uL (1.4-6.5); Platelet Count 315 K/uL (130-400); RDW Standard Deviation 43.1 fL (36.4-46.3); Red Blood Count 3.75 M/uL (4.2-5.4); White Blood Count 7.86 K/uL (4.8-10.8)
[2019-04-08 07:16] LABS: BUN Creatinine Ratio 9.7 (10-20); Calcium 8.4 mg/dl (8.5-10.1); Creatinine Clr Calc Pharmacy 112.3 ml/min; Est GFR (African American) 126.5; Est GFR (Non-African American) 109.1; Magnesium 1.9 mg/dl (1.8-2.4); Potassium 3.4 mmol/L (3.5-5.1)
[2019-04-08] MEDS: AMOXICILLIN/CLAVULANATE 875 MG TAB PO SCH (07:48)
[2019-04-08] MEDS ORDERED: POTASSIUM CHLORIDE 20 MEQ TABCR PO ONE (08:30)
[2019-04-08] MEDS ORDERED: ENOXAPARIN INJ 40 MG/0.4 ML SYR SQ SCH (09:00)
--- NOTE | 2019-04-08 10:05 | Hospitalist Progress Note ---
Date of Service April 08, 2019 Assessment & Plan (1) Pleuritic chest pain: Present on admission with chest discomfort worsening with deep breathing/when lying flat and SOB on exertion Possible related to fluid overload from recent admission for diverticulitis CTA chest showed no PE Small bilateral pleural effusions. Troponin x2 negative Bradycardia on tele monitor Will get an echo to r/o any pericardial effusion Cardiology consult Continue monitor in tele (2) Bradycardia: denies any dizziness, but SOB and chest discomfort EKG showed sinus bradycardia with HR 37 Not on any AV audrey blockers medication TSH normal Continue monitor closely in tele (3) Pleural effusion: Secondary to recent infection with over resuscitation during recent hospitalization. received Lasix 10 IV ordered. Diuresis well with 10mg lasix Repeat CXR today (4) Diverticulitis: Denies any abdominal pain tolerated low fiber diet Stable (5) Hypothyroidism, postablative: TSH WNL Continue Synthroid Hypokalemia K 3.4 today K replaced Stable Elevated D-dimer Mostly due to recent GI infection CTA chest showed no PE Will get a doppler of LE to r/o DVT (6) DVT prophylaxis: On Lovenox Code status Full code Disposition Will discharge once medically stable Subjective Pt was seen and examined. Lying in bed with no distress Pt said that she continues to have chest discomfort She said that her symptoms worsening when she lies down flat and with deep breathing She said that her hear rate usually runs btw the 60-70's She said that her breathing and the swelling improves Denies any dizziness, chest pain and palpitation Physical Exam Physical Exam: General- No acute distress Head- atraumatic Eyes- PERRL, EOMI, ENT- oropharynx clear Neck- supple, no JVD Lungs- clear to auscultation Heart- +bradycardia, no murmur Abdomen- normal bowel sounds, soft, nontender Extremities- no calf tenderness Neuro- alert, oriented x 3; PERRL, EOMI; no facial palsy; no dysarthria Skin- warm & dry Results & Data Vital Signs (Past 12 Hours) Vital Signs Temp Pulse Resp BP Pulse Ox 04/08/19 07:05 37.1 C 36 L 17 129/78 97 04/08/19 03:10 36.9 C 46 L 16 118/71 97 04/07/19 23:21 36.8 C 46 L 17 105/63 96
--- NOTE | 2019-04-08 10:31 | Cardiology Consultation ---
Date of Consultation April 08, 2019 Assessment & Plan (1) Pleuritic chest pain: Preliminary echo demonstrates normal LV function and no pericardial effusion no evidence of right ventricular enlargement or strain. Suspect symptoms are secondary to mild to moderate volume overload now respon ding to therapies. Given elevation in d-dimer and recent extended hospitalization would complete evaluation with venous duplex lower extremity (2) Bradycardia: Heart rate responds to movement and activity no profound bradycardia arrhythmias or pauses. Patient asymptomatic (3) Hypothyroidism, postablative: (4) Diverticulitis: History of Present Illness Reason for Consultation: Pleuritic pain Requesting Physician: Dr. Moyer Attending Physician: Jese Moyer MD History of Present Illness Patient is a 38-year-old female without prior cardiac history recently hospitalized with acute diverticulitis treated with antibiotic therapies and fluid resuscitation. Rehospitalized yesterday with symptoms of pleuritic discomfort and breathlessness. Underlying heart rhythm as noted below sinus bradycardia Overall is been feeling significantly volume overloaded with abdominal bloating lower extremity edema weight up 9 pounds. In the emergency room patient responded very promptly to single low-dose 10 mg IV dose of furosemide with brisk diuresis. Feels improved this morning there was some mild breathlessness on deep inspiration prior chest discomfort and inspiration has improved. CT scan of the chest does not demonstrate evidence of pulmonary emboli Allergies Allergy/AdvReac Type Severity Reaction Status Date / Time aspirin Allergy Mild Hives Verified 04/07/19 16:40 codeine Allergy Mild Hives Verified 04/07/19 16:40 Home Medications Home Medications Medication Instructions Recorded Confirmed Type multivitamin 1 tab PO HS 04/01/19 04/07/19 History amoxicillin-pot clavulanate 1 tab PO BID 14 Days #28 tab 04/04/19 04/07/19 Rx [Augmentin] ibuprofen 200 mg PO QID PRN 04/07/19 04/07/19 History levothyroxine [Synthroid] 125 mcg PO QAM 04/07/19 04/07/19 History Patient History Medical History Diverticulitis (Acute) Hx of papillary thyroid carcinoma Hypothyroidism, postablative Surgical History H/O elbow surgery H/O wisdom tooth extraction S/P thyroidectomy 2010 Family History Mother Hx of cholecystectomy Diverticulitis Rheumatoid arthritis Social History Preferred Language: Czech Communication Ability: Effective Chef'S Assistant Required: No Beliefs That Will Affect Care: None Current Living Situation: Spouse and Family Other Information That Helps Us Care for You: No Feels Safe at Home: Yes Safety Concerns: Feels Safe At This Time Smoking Status: Never smoker Do You Dip or Chew Tobacco: No ; Second Hand Exposure: No ; Tobacco Cessation Education Requested by Patient: No Hx Alcohol Use: No Hx Substance Use: No Review of Systems Review of Systems: All systems reviewed & are unremarkable except as noted in HPI & below Physical Exam Constitutional: WD/WN, vitals as above Eyes: PERRL, conjunctivae normal, anicteric sclerae ENMT: external ear and nose normal, oropharynx normal Neck: trachea midline Thyroidectomy scar present Respiratory: normal respiratory effort, lungs clear to auscultation Cardiovascular: Rate/Rhythm: regular rate and regular rhythm Heart Sounds: normal S1 and normal S2; no gallop and no murmur Palpation: normal PMI Vessels: normal carotid upstroke and radial pulses present; no JVD and no carotid bruit Extremities: no edema Gastrointestinal (Abdomen): normal bowel sounds, soft, nontender, no hepatosplenomegaly Musculoskeletal: no cyanosis or clubbing, extremities motor strength 5/5 Skin: no rashes, warm and dry Neurologic: PERRL, EOMI, accommodation nl, no face palsy, no dysarthria Psychiatric: A+Ox3, euthymic affect Results & Data Vital Signs (Past 12 Hours) Vital Signs Temp Pulse Resp BP Pulse Ox 04/08/19 07:05 37.1 C 36 L 17 129/78 97 04/08/19 03:10 36.9 C 46 L 16 118/71 97 04/07/19 23:21 36.8 C 46 L 17 105/63 96 Laboratory Results Laboratory Results - last 24 hr 04/07/19 04/07/19 04/07/19 16:37 16:37 16:37 WBC 7.65 RBC 3.77 L Hgb 11.4 L Hct 33.8 L MCV 89.7 MCH 30.2 MCHC 33.7 RDW Std Deviation 42.4 RDW Coeff of Shannon 13.0 Plt Count 299 MPV 10.4 Immature Gran % (Auto) 0.1 Neut % (Auto) 58.5 Lymph % (Auto) 29.0 Coos % (Auto) 8.1 Eos % (Auto) 3.9 Baso % (Auto) 0.4 Immature Gran # (Auto) 0.01 Neut # (Auto) 4.47 Lymph # (Auto) 2.22 Coos # (Auto) 0.62 H Eos # (Auto) 0.30 Baso # (Auto) 0.03 PT 11.4 INR 1.1 APTT 25.7 PTT Ratio 0.9 D-Dimer 8950 H* Sodium 141 Potassium 3.3 L Chloride 104 Carbon Dioxide 27 Anion Gap 9.0 BUN 6 L Creatinine 0.75 Est Cr Clr Drug Dosing 106.5 Est GFR ( Amer) 116.4 Est GFR (Non-Af Amer) 100.4 BUN/Creatinine Ratio 8.4 L Glucose 84 Calcium 8.9 Magnesium 1.8 Total Bilirubin 0.3 AST 26 ALT 32 Alkaline Phosphatase 70 Troponin I < 0.015 Total Protein 7.4 Albumin 3.4 Globulin 4.0 Albumin/Globulin Ratio 0.9 Lipase 68 L TSH 3.650 HCG, Qual 04/07/19 04/07/19 04/08/19 16:37 22:18 06:29 WBC 7.86 RBC 3.75 L Hgb 11.3 L Hct 34.2 L MCV 91.2 MCH 30.1 MCHC 33.0 RDW Std Deviation 43.1 RDW Coeff of Shannon 13.0 Plt Count 315 MPV 9.9 Immature Gran % (Auto) 0.1 Neut % (Auto) 54.0 Lymph % (Auto) 32.3 Coos % (Auto) 8.1 Eos % (Auto) 5.0 Baso % (Auto) 0.5 Immature Gran # (Auto) 0.01 Neut # (Auto) 4.24 Lymph # (Auto) 2.54 Coos # (Auto) 0.64 H Eos # (Auto) 0.39 Baso # (Auto) 0.04 PT INR APTT PTT Ratio D-Dimer Sodium Potassium Chloride Carbon Dioxide Anion Gap BUN Creatinine Est Cr Clr Drug Dosing Est GFR ( Amer) Est GFR (Non-Af Amer) BUN/Creatinine Ratio Glucose Calcium Magnesium Total Bilirubin AST ALT Alkaline Phosphatase Troponin I < 0.015 Total Protein Albumin Globulin Albumin/Globulin Ratio Lipase TSH HCG, Qual Negative 04/08/19 06:29 WBC RBC Hgb Hct MCV MCH MCHC RDW Std Deviation RDW Coeff of Shannon Plt Count MPV Immature Gran % (Auto) Neut % (Auto) Lymph % (Auto) Coos % (Auto) Eos % (Auto) Baso % (Auto) Immature Gran # (Auto) Neut # (Auto) Lymph # (Auto) Coos # (Auto) Eos # (Auto) Baso # (Auto) PT INR APTT PTT Ratio D-Dimer Sodium 142 Potassium 3.4 L Chloride 107 Carbon Dioxide 29 Anion Gap 6.0 BUN 7 Creatinine 0.70 Est Cr Clr Drug Dosing 112.3 Est GFR ( Amer) 126.5 Est GFR (Non-Af Amer) 109.1 BUN/Creatinine Ratio 9.7 L Glucose 83 Calcium 8.4 L Magnesium 1.9 Total Bilirubin AST ALT Alkaline Phosphatase Troponin I Total Protein Albumin Globulin Albumin/Globulin Ratio Lipase TSH HCG, Qual
--- NOTE | 2019-04-08 11:46 | Ultrasound Report ---
BILATERAL LOWER EXTREMITY VENOUS DOPPLER CLINICAL HISTORY: Elevated D-dimer COMPARISON STUDY: No previous studies for comparison. TECHNIQUE: Sonography of the deep venous system of the bilateral lower extremities was performed. Co mpression and augmentation were evaluated. FINDINGS: The bilateral common femoral, superficial femoral and popliteal veins were compressible. A ugmentation was normal. Flow was shown within the deep calf vessels. IMPRESSION: No evidence of deep venous thrombus within the bilateral lower extremities. Electronically signed by: Alex Méndez M.D. 04/08/2019 11:45 AM
--- NOTE | 2019-04-08 14:41 | XRay Report ---
XR chest 1V portable CLINICAL HISTORY: f/u pleural effusion pleural effusion COMPARISON STUDY: 04/07/2019 FINDINGS: Small unchanged left pleural effusion. Trace pleural fluid right base also unchanged. Mild bibasilar atelectasis. Mid and upper lungs are clear. IMPRESSION: Small unchanged bilateral pleural effusions. Unchanged bibasilar atelectasis. The above report was generated using voice recognition software. It may contain grammatical, syntax or spelling errors. Electronically signed by: Grady Yanez M.D. 04/08/2019 2:40 PM
--- NOTE | 2019-04-09 08:34 | Discharge Summary ---
Date of Service April 08, 2019 Admission HPI Per Admitting Provider 38-year-old female presented with acute abdominal pain and was recently admitted to the hospital. She was ultimately found to have acute diverticulitis and has done well on the Augmentin she was sent home on. However, during the hospitalization she was kept n.p.o. for several days with several days of IV fluids and gained reportedly 10 pounds during this time. Just prior to discharge she reported having some chest pressure especially worse with lying down and feeling like something was sitting on her chest. She was discharged and continued to feel this way subsequently becoming bradycardic. She felt as if she had too much fluid on her. She continued to worsen today and went to urgent care to be seen and subsequently came to the ER. EKG coming in reveals no evidence of block and she is in sinus bradycardia that is rate responsive. Heart rate will go up into the high 60s when she is active and conversing with me. She still feels like something is sitting on her chest and feels as if she cannot get a very deep breath. Lying flat causes the pain and pressure to be worse and sitting in a tripod position can help the pressure somewhat. CT of her chest this evening reveals persistent bilateral pleural effusions. Troponin is negative and there is no evidence of ischemia present on EKG. Her abdomen has been improving on the Augmentin and her pain is still present in the right upper quadrant and epigastric area now but is improved overall. She is starting to have normalized bowel movements and is doing well on her low fiber diet. She denies any other issues with fevers or chills. She does report a dry cough the last couple of days. Review of systems otherwise reveals mild headache for which she is taken Tylenol. She does report some intermittent palpitations also. Admission Exam Per Admitting Provider CONSTITUTIONAL: WNWD, vitals as above, generally well-appearing EYES: PERRL, normal conjunctivae, no scleral icterus ENT: external ear and nose normal, oropharynx clear NECK: trachea midline, no LAD RESPIRATORY: clear to auscultation bilaterally, no crackles, rales or wheezes, normal respiratory effort CARDIOVASCULAR: regular rate and rhythm, S1 and 2 heard without murmurs, gallops or rubs, no JVD, no peripheral edema GASTROINTESTINAL: normal bowel sounds, soft, RUQ and epigastric TTP MUSCULOSKELETAL: strength 5/5 throughout, head is normocephalic and atraumatic SKIN: warm and dry NEUROLOGIC: CN 2-12 grossly intact, no sensory deficit, normal cognition, normal speech, no gross focal deficits. PSYCHIATRIC: alert cooperative and oriented to person, place and time. Principal Diagnosis Pleuritic chest pain Bradycardia Pleural effusion Diverticulitis Hypothyroidism Hypokalemia Elevated D-dimer Discharge Exam General- No acute distress Head- atraumatic Eyes- PERRL, EOMI, ENT- oropharynx clear Neck- supple, no JVD Lungs- clear to auscultation Heart- +bradycardia, no murmur Abdomen- normal bowel sounds, soft, nontender Extremities- no calf tenderness Neuro- alert, oriented x 3; PERRL, EOMI; no facial palsy; no dysarthria Skin- warm & dry Discharge Data Allergies Allergy/AdvReac Type Severity Reaction Status Date / Time aspirin Allergy Mild Hives Verified 04/07/19 16:40 codeine Allergy Mild Hives Verified 04/07/19 16:40 Consultations 04/07/19 18:16 ED Decision to Admit Stat 04/07/19 19:58 Consult Case Management - Discharge Planning Routine 04/08/19 09:50 Consult Cardiology Routine Ordered Studies 04/07/19 16:22 CT head/brain wo con Stat 04/07/19 17:28 CT angio chest PE protocol Stat 04/08/19 10:48 US venous doppler LE Routine HEAD CT NONCONTRAST CT DOSE: 537.48 mGy.cm HISTORY: Headache. TECHNIQUE: Multiaxial CT images of the head were performed without the use of intravenous contrast. Automated exposure control was utilized for this study. A dose lowering technique was utilized adhering to the principles of ALARA. Comparison: None. Findings: The paranasal sinuses and mastoid air cells are clear. The calvarium and skull base are intact. The ventricles and sulci are within normal limits. There is no mass, hematoma, midline shift, or acute infarct. Impression: No acute intracranial abnormality. Electronically signed by: Jeremi Durbin M.D. 04/07/2019 5:18 PM Dictated: 04/07/191714 Transcribed: 04/07/191714 XR chest 1V portable HISTORY: Atypical Chest Pain COMPARISON: Abdomen and pelvis CT 04/04/2019. FINDINGS: No pneumothorax. Small bilateral pleural effusions are again noted. Bibasilar linear densities consistent with subsegmental atelectasis. The upper lung zones remain clear. The heart is normal in size. IMPRESSION: No change in the small bilateral pleural effusions and bibasilar subsegmental atelectasis. Electronically signed by: Jeremi Durbin M.D. 04/07/2019 4:45 PM Dictated: 04/07/19 1644 Transcribed: 04/07/19 1644 CHEST CTA for PULMONARY ARTERIES CT DOSE: 264.51 mGy.cm HISTORY: Atypical chest pain. TECHNIQUE: Multiaxial CT images of the chest were performed following the intravenous administration of contrast to evaluate the pulmonary arteries. Maximal intensity projection images were also obtained. A dose lowering technique was utilized adhering to the principles of ALARA. COMPARISON STUDY: None. FINDINGS: No mediastinal or hilar lymphadenopathy. The heart is normal in size. No pericardial effusion. Small bilateral pleural effusions, right greater than left. Normal caliber thoracic aorta. No evidence for an aortic dissection. Limited views of the upper abdomen demonstrate a normal liver and spleen. Normal esophagus. No filling defects within the pulmonary arteries to suggest pulmonary embolus. No fractures within the visualized osseous structures. No pneumothorax. Bilateral lower lobe basilar consolidation favors atelectasis from the pleural effusions. The central airways are patent. IMPRESSION: 1. No evidence for pulmonary embolus. 2. Small bilateral pleural effusions. 3. Bibasilar densities favor atelectasis. Electronically signed by: Jeremi Durbin M.D. 04/07/2019 5:56 PM Dictated: 04/07/19 1751 Transcribed: 04/07/19 1751 XR chest 1V portable CLINICAL HISTORY: f/u pleural effusion pleural effusion COMPARISON STUDY: 04/07/2019 FINDINGS: Small unchanged left pleural effusion. Trace pleural fluid right base also unchanged. Mild bibasilar atelectasis. Mid and upper lungs are clear. IMPRESSION: Small unchanged bilateral pleural effusions. Unchanged bibasilar atelectasis. The above report was generated using voice recognition software. It may contain grammatical, syntax or spelling errors. Electronically signed by: Grady Yanez M.D. 04/08/2019 2:40 PM Dictated: 04/08/19 1439 Transcribed: 04/08/19 1439 BILATERAL LOWER EXTREMITY VENOUS DOPPLER CLINICAL HISTORY: Elevated D-dimer COMPARISON STUDY: No previous studies for comparison. TECHNIQUE: Sonography of the deep venous system of the bilateral lower extremities was performed. Compression and augmentation were evaluated. FINDINGS: The bilateral common femoral, superficial femoral and popliteal veins were compressible. Augmentation was normal. Flow was shown within the deep calf vessels. IMPRESSION: No evidence of deep venous thrombus within the bilateral lower extremities. Electronically signed by: Alex Méndez M.D. 04/08/2019 11:45 AM Dictated: 04/08/19 1145 Transcribed: 04/08/19 1145 Hospital Course (1) Pleuritic chest pain: Present on admission with chest discomfort worsening with deep breathing/when lying flat and SOB on exertion Possible related to fluid overload from recent admission for diverticulitis CTA chest showed no PE Small bilateral pleural effusions. Troponin x2 negative Bradycardia on tele monitor ECHO showed no wall motion abnormality, no pericardial effusion. EF 60-65 % Cardiology was consulted no further cardiac testing needed Stable from cardiology standpoint (2) Bradycardia: denies any dizziness, but SOB and chest discomfort EKG showed sinus bradycardia with HR 37 Not on any AV audrey blockers medication TSH normal Continue monitor closely in tele (3) Pleural effusion: Secondary to recent infection with over resuscitation during recent hospitalization. received Lasix 10 IV ordered. Diuresis well with 10mg lasix Repeat CXR showed Small unchanged bilateral pleural effusions. Unchanged bibasilar atelectasis. (4) Diverticulitis: Denies any abdominal pain tolerated low fiber diet Stable (5) Hypothyroidism, postablative: TSH WNL Continue Synthroid Hypokalemia K 3.4 today K replaced Stable Elevated D-dimer Mostly due to recent GI infection CTA chest showed no PE Doppler B/L LE showed No evidence of deep venous thrombus within the bilateral lower extremities. (6) DVT prophylaxis: On Lovenox Code status Full code Disposition Discharge home stable Total Time Total Time Spent Total Time Spent (In Minutes): 35 miinutes Total Time Includes: Examination of the Patient, Discharge Planning, Medication Reconciliation, Communication With Other Providers and Other Discharge Plan Discharge Items Patient Disposition: Home - Self-Care Reason For Visit: BRADYCARDIA, INTRA-ABDOMINAL INFEXN Discharge Diagnosis: Pleuritic chest pain Bradycardia Pleural effusion Diverticulitis Hypothyroidism Hypokalemia Elevated D-dimer Activity: Resume your previous activity Activity Comment: as tolerated Non-emergency contact: Primary Care Provider Call non-emergency contact if: you have any medication questions Follow-up/Referrals: Mary Nicholas, [Primary Care Provider] - Diet: Low Fiber Addtl Attending Provider Instructions: Follow up with your primary care provider within 1 week ( office will call you tomorrow to schedule for the appointment) Follow up with surgery Dr. Arredondo (please call to schedule for the follow up appointment) increase potassium supplement in your diet Pending Studies at Discharge: No Stand-Alone Forms: My [facility], Smoking Cessation Medications and DC Order Prescriptions: Continued ibuprofen 200 mg Tablet 200 mg PO QID PRN (Reason: Pain) RF: 0 levothyroxine [Synthroid] 125 mcg tablet 125 mcg PO QAM RF: 0 multivitamin Tablet 1 tab PO HS RF: 0 amoxicillin-pot clavulanate [Augmentin] 875-125 mg tablet 1 tab PO BID 14 Days Qty: 28 RF: 0 Discharge Orders: Discharge Order (Routine); Ordered 04/08/19 Ordered By: Jese Moyer Admission Data Admit Date/Time: 04/07/19 18:45 Attending Provider: Jese Moyer Admit Provider: Altagracia Stafford Primary Care Provider: Mary Nicholas Other Providers: Altagracia Stafford ; Noe Barker Other Interventions: Discharge Summary Assessment (RN) Last Done: 04/08/19 18:24 DC Date/Time DO NOT enter until pt leaves facility: 04/08/19 18:44
== END 2019-04-08 18:44 | disposition home or self-care (01) | DRG 187 ==
LOC: ED 16:02 → SUATTDRO 18:45 → 2E 18:45

== ENCOUNTER 2020-01-01 19:49 | Inpatient (IN) ==
[2020-01-01] MEDS ORDERED: OXYTOCIN 30 UNITS/500 ML BAG IV PRN (20:51)
[2020-01-01] MEDS ORDERED: miSOPROStoL 50 MCG TAB PO ONE (20:51)
[2020-01-01] MEDS ORDERED: DEXTROSE 50% 50 ML SYRINGE IV PRN (20:58)
[2020-01-01] MEDS ORDERED: SODIUM CHLORIDE 0.9% 1000ML 1,000 ML IV PRN (20:58)
[2020-01-01] MEDS ORDERED: INSULIN REGULAR 250 UNITS in SODIUM CHLORIDE 0.9% 247.5 ML IV PRN (20:58)
[2020-01-01] MEDS ORDERED: DEXTROSE 5% 1,000 ML IV PRN (20:58)
[2020-01-01] MEDS ORDERED: PENICILLIN G POTASSIUM 6 MU in DEXTROSE 5% 250 ML IV ONE (21:15)
[2020-01-01] MEDS: LACTATED RINGER'S 1,000 ML IV PRN (21:25)
[2020-01-01 21:26] LABS: Hematocrit (blood only) 38.3 % (37-47); Hemoglobin 13.1 g/dL (12.0-16.0); Mean Corpuscular Hemoglobin 30.3 pg (25-34); Mean Corpuscular Volume 88.7 fL (80-100); Mean Platelet Volume 10.2 fL (7.4-10.4); Platelet Count 274 K/uL (130-400); RDW Coefficient of Variation 13.2 % (11.5-14.5); RDW Standard Deviation 42.9 fL (36.4-46.3); Red Blood Count 4.32 M/uL (4.2-5.4); White Blood Count 15.31 K/uL (4.8-10.8)
[2020-01-01 21:27] LABS: Mean Corpuscular Hgb Conc 34.2 g/dL (32-36)
[2020-01-02] MEDS ORDERED: miSOPROStoL 50 MCG TAB PO ONE (00:55)
[2020-01-02] MEDS: PENICILLIN G POTASSIUM 3 MU in DEXTROSE 5% 100 ML IV PRN ×4 (01:06→12:50)
[2020-01-02] MEDS ORDERED: OXYTOCIN 30 UNITS/500 ML BAG IV PRN ×2 (10:48→14:49)
[2020-01-02] MEDS ORDERED: ePHEDrine sulfate 50 MG/ML AMP ONE (13:14)
[2020-01-02] MEDS ORDERED: BUPIVACAINE 0.25% 30 ML VIAL ONE (13:14)
[2020-01-02] MEDS ORDERED: fentaNYL 2MCG/ML ROPIVACAINE 1.25MG/ML 100 ML BAG EPI ONE (13:14)
[2020-01-02] MEDS ORDERED: fentaNYL citrate 100 MCG/2 ML VIAL ONE (13:14)
--- NOTE | 2020-01-02 13:20 | Anesthesiology Consultation ---
Date of Service January 02, 2020 Assessment & Plan (1) Encounter for pre-operative examination: Chart Review Chart Review: Acceptable Risk for Labor Epidural History Height/Weight Height: 5 ft 6 in Weight: 92.986 kg Allergies Allergy/AdvReac Type Severity Reaction Status Date / Time aspirin Allergy Mild Hives Verified 01/01/20 22:49 codeine Allergy Mild Hives Verified 01/01/20 22:49 Medications Home Medications Medication Instructions Recorded Confirmed Last Taken multivitamin 1 tab PO HS 04/01/19 01/01/20 12/31/19 22:00 levothyroxine 125 mcg tablet 125 mcg PO QAM tab 12/02/19 01/01/20 01/01/20 07:30 pen needle, diabetic 32 gauge x #100 ea 12/09/19 12/09/19 Unknown " insulin NPH isoph U-100 human 20 units SQ QPM MDD up to a TDD 30 01/01/20 01/01/20 12/31/19 [Novolin N Flexpen] units a day 20 units insulin aspart U-100 [Novolog 9 units SQ TID MDD up to 30 units 01/01/20 01/01/20 01/01/20 18:30 Flexpen U-100 Insulin] in a day Active Medications Generic Name Dose Route Start Last Admin Trade Name Freq PRN Reason Stop Dose Admin Lactated Ringer's 1,000 mls @ 125 mls/hr 01/01/20 20:51 01/01/20 22:32 Lr IV 01/03/20 20:50 0 mls/hr .Q8H PRN Infusion L&D Protocol Protocol Penicillin G Potassium 3 mu/ 106 mls @ 100 mls/hr 01/01/20 20:51 01/02/20 12:50 Dextrose IV 01/11/20 20:50 100 mls/hr Q4H PRN Administration Give until delivery Oxytocin 30 units in 500 mls @ 8 mls/hr 01/02/20 10:48 01/02/20 12:40 Pitocin IV 01/04/20 10:47 0.48 units/hr .Q24H PRN 8 mls/hr Labor Induction/Augmentation Titration Protocol 0.48 UNITS/HR Past Medical History Medical History Diverticulitis Hx of papillary thyroid carcinoma Hypothyroidism, postablative Past Family History Family History Mother Hx of cholecystectomy Diverticulitis Rheumatoid arthritis Brother Hypertension Aunt Breast cancer Grandfather Cancer Diabetes Grandmother Cancer Past Surgical History Surgical History H/O elbow surgery H/O wisdom tooth extraction S/P thyroidectomy 2010 Social History Smoking Status: Never smoker Do You Dip or Chew Tobacco: No Hx Alcohol Use: No Hx Substance Use: No substance use type: does not use Physical Exam Vital Signs Last Vital Signs Temp 36.7 C 01/02/20 12:00 Pulse 63 01/02/20 12:53 Resp 20 01/02/20 12:00 BP 124/73 01/02/20 12:53 Testing Laboratory Results 01/01/20 21:16 01/02/20 01/02/20 01/02/20 12:07 09:20 07:05 POC Glucose 96 86 89 01/02/20 01/02/20 05:03 03:16 POC Glucose 89 92
[2020-01-02] MEDS: LACTATED RINGER'S 1,000 ML IV PRN (13:40)
[2020-01-02] MEDS ORDERED: NALOXONE HCL 0.4 MG/1 ML VIAL/CARP IV PRN (13:53)
[2020-01-02] MEDS ORDERED: ONDANSETRON INJ 2 MG/ML 2 ML VIAL IV PRN (13:53)
[2020-01-02] MEDS ORDERED: ePHEDrine sulfate 50 MG/ML AMP IV PRN (13:53)
[2020-01-02] MEDS ORDERED: NALOXONE HCL 1 MG in SODIUM CHLORIDE 0.9% 1000ML 1,000 ML IV PRN (13:53)
[2020-01-02] MEDS ORDERED: fentaNYL 2MCG/ML ROPIVACAINE 1.25MG/ML 100 ML BAG EPI PRN (13:53)
[2020-01-02] MEDS ORDERED: oxyCODONE/ACETAMINOPHEN 5mg/325mg TAB PO PRN (14:49)
[2020-01-02] MEDS ORDERED: HYDROCORTISONE ACETATE 25 MG SUPP PR PRN (14:49)
[2020-01-02] MEDS ORDERED: bisacodyL 10 MG SUPP PR PRN (14:49)
[2020-01-02] MEDS ORDERED: BENZOCAINE 20% AER SPR 82.5 GM CAN EXT PRN (14:49)
[2020-01-02] MEDS ORDERED: SUPERCREAM 0.870% 15 GM JAR EXT PRN (14:49)
[2020-01-02] MEDS ORDERED: ACETAMINOPHEN 325 MG TAB PO PRN (14:49)
[2020-01-02] MEDS ORDERED: ACETAMINOPHEN W/CODEINE #3 1 TAB PO PRN (14:49)
[2020-01-02] MEDS ORDERED: DIPHTHERIA/TETANUS/PERTUSSIS 0.5 ML SYR/VIAL IM ONE (14:49)
--- NOTE | 2020-01-02 15:07 | Anesthesia Procedure Note ---
Date of Service January 02, 2020 Anesthesia Post Epidural Note Vital Signs Vital Signs: Temp Pulse Resp BP Pulse Ox 36.7 C 62 20 121/61 89 L 01/02/20 12:00 01/02/20 14:53 01/02/20 12:00 01/02/20 14:53 01/02/20 14:38 Pain Intensity Bilateral Abdomen: Pain Intensity: 2 Notes Mental Status: alert / awake / arousable and participated in evaluation Nausea / Vomiting: adequately controlled Pain: adequately controlled Airway Patency, RR, SpO2: stable & adequate BP & HR: stable & adequate Hydration State: stable & adequate Neuraxial Anesthesia: was administered and sensory block is resolving Anesthetic Complications: no major complications apparent Epidural: Removed without complications and With tip intact
--- NOTE | 2020-01-02 15:11 | Delivery Summary ---
DATE OF OPERATION: 01/02/2020 DELIVERY NOTE: Mrs. Miranda was a late arrival to our practice. She had a borderline 3-hour GTT, which we had consulted with the diabetic nurses on, eventually she went on insulin. She used insulin for a good part of the course. She did have an ultrasound at 36 weeks, which showed that the head size and abdomen size were equivalent indicating a normal weight distribution. We also agreed on induction of labor at 39 weeks due to the fact that her previous 2 children born at 40 weeks were 8-1/2 pounds. She was brought in at 38 weeks and 6 days in the evening, she was started on penicillin for being group B strep positive. Her blood type being A positive. She was given 2 doses of p.o. Cytotec during the night. The following morning, she was 6 with cervix being 100% effaced and we went to IV Pitocin. She developed a good labor pattern on IV Pitocin. Eventually, her membranes ruptured spontaneously. She did request and received epidural, from which she obtained good pain relief. Next time I checked her, she was fully dilated at a 0 to +1 station. We let her labor down for a short period of time and then with about 4 pushes, she pushed out a live female via direct occiput anterior position over an intact perineum. There was a very tight nuchal cord, which had to be clamped and cut. Shoulders were delivered without difficulty. General inspection of the infant estimated as weight at only about 7 pounds. breathed and cried spontaneously, was suctioned through the mouth and the nose. Cord blood was taken. With IV Pitocin, the placenta was removed intact. Inspection of the perineum revealed a very superficial laceration of the perineum at about 7 o'clock. This was repaired with a running 3-0 chromic. Uterus contracted nicely. Hemostasis was good. Estimated blood loss 100 mL. Apgars are deferred to the nurses. I attest to the content of the Intraoperative Record and any orders documented therein. Any exception s are noted below.
[2020-01-02] MEDS: DOCUSATE SODIUM 100 MG CAP PO SCH (20:58)
[2020-01-03] MEDS: IBUPROFEN 600 MG TAB PO PRN ×3 (03:32→11:55)
[2020-01-03] MEDS: LEVOTHYROXINE SODIUM 125 MCG TABLET PO SCH (06:12)
[2020-01-03 06:38] LABS: Hematocrit (blood only) 36.2 % (37-47); Hemoglobin 12.3 g/dL (12.0-16.0); Mean Corpuscular Hemoglobin 30.6 pg (25-34); Mean Platelet Volume 10.5 fL (7.4-10.4); Platelet Count 234 K/uL (130-400); RDW Coefficient of Variation 13.3 % (11.5-14.5); Red Blood Count 4.02 M/uL (4.2-5.4); White Blood Count 17.85 K/uL (4.8-10.8)
[2020-01-03] MEDS: DOCUSATE SODIUM 100 MG CAP PO SCH ×2 (08:11→20:33)
[2020-01-03] MEDS: PRENATAL VITAMIN 1 TAB PO SCH (08:11)
--- NOTE | 2020-01-03 11:22 | Obstetrical Progress Note ---
Date of Service January 03, 2020 Assessment & Plan Admission and Anticipated Discharge Date Admission Date: January 01, 2020 Physical Exam Physical Exam: abdomen soft and nontender no calf tenderness ambulating well vaginal bleeding scant hgb Results & Data ([facility]) Vital Signs (Past 12 Hours) Vital Signs Temp Pulse Resp BP Pulse Ox 01/03/20 08:00 36.5 C 63 18 108/73 96 01/03/20 03:25 36.8 C 58 L 16 134/88 96 01/03/20 00:10 36.8 C 70 16 115/70 96
--- NOTE | 2020-01-03 11:22 | Obstetrical Progress Note ---
Date of Service January 03, 2020 Assessment & Plan Admission and Anticipated Discharge Date Admission Date: January 01, 2020 Results & Data ([facility]) Vital Signs (Past 12 Hours) Vital Signs Temp Pulse Resp BP Pulse Ox 01/03/20 08:00 36.5 C 63 18 108/73 96 01/03/20 03:25 36.8 C 58 L 16 134/88 96 01/03/20 00:10 36.8 C 70 16 115/70 96
--- NOTE | 2020-01-03 11:23 | Obstetrical Progress Note ---
Date of Service January 03, 2020 Assessment & Plan Admission and Anticipated Discharge Date Admission Date: January 01, 2020 Physical Exam Physical Exam: abdomen soft and non tender vaginal bleeding scant hgb 12.3 no calf tenderness ambulating well Results & Data ([facility]) Vital Signs (Past 12 Hours) Vital Signs Temp Pulse Resp BP Pulse Ox 01/03/20 08:00 36.5 C 63 18 108/73 96 01/03/20 03:25 36.8 C 58 L 16 134/88 96 01/03/20 00:10 36.8 C 70 16 115/70 96
[2020-01-03] MEDS ORDERED: bisacodyL 5 MG TABEC PO SCH (20:00)
[2020-01-04 00:03] VITALS: TEMP 98.2
[2020-01-04 06:33] LABS: Hematocrit (blood only) 38.9 % (37-47); Hemoglobin 12.8 g/dL (12.0-16.0)
[2020-01-04] MEDS: LEVOTHYROXINE SODIUM 125 MCG TABLET PO SCH (06:54)
[2020-01-04] MEDS: DOCUSATE SODIUM 100 MG CAP PO SCH (08:30)
[2020-01-04] MEDS: PRENATAL VITAMIN 1 TAB PO SCH (08:30)
[2020-01-04 08:57] VITALS: BP 127/84; PULSE 66; O2SAT 97
--- NOTE | 2020-01-04 09:45 | Obstetrical Progress Note ---
Date of Service January 04, 2020 Assessment & Plan Admission and Anticipated Discharge Date Admission Date: January 01, 2020 Physical Exam Physical Exam: abdomen soft and non tender no calf tenderness ambulating well vaginal bleeding scant hgb 12.8 Results & Data ([facility]) Vital Signs (Past 12 Hours) Vital Signs Temp Pulse Resp BP Pulse Ox 01/04/20 07:25 36.8 C 66 18 127/84 97 01/03/20 23:05 36.8 C 67 18 111/70
== END 2020-01-04 13:20 | disposition home or self-care (01) | DRG 807 ==
LOC: 4S1 19:49 → 4S2 01-02 19:57